=== PATIENT | female | born 1960 | race Caucasian/White ===

== ENCOUNTER 2020-02-04 12:25 | Outpatient (CLI) | payer BC, SELFPAY ==
--- NOTE | ~2020-02-04 | XR_ITS ---
XR chest 2V DATE: 02/04/2020 12:42 INDICATION: Dyspnea on exertion. Positive SB. TECHNIQUE: PA and lateral views are COMPARISON: 01/06/2019 CT chest 09/03/2018 2 view chest FINDINGS: Borderline heart size. No hilar or mediastinal enlargement. No pulmonary infiltrate or cons olidation, pleural effusion or pulmonary vascular congestion or pneumothorax. Chronic T8 fracture deformity. IMPRESSION: No active pulmonary disease or significant change since 09/03/2018 Reviewed, dictated and finalized at location A.
== END 2020-02-04 12:26 | disposition home or self-care (01) ==
LOC: ANHIMG 12:31
PROVIDERS: PCP Family Medicine Adolescent Medicine; Visit Provider Physician Assistant
DX: R06.00 Dyspnea, unspecified (principal); R76.8 Other specified abnormal immunological findings in serum
CPT/HCPCS: 71046

== ENCOUNTER 2020-03-29 09:49 | Outpatient (CLI) | payer BC, SELFPAY ==
--- NOTE | ~2020-03-29 | MR_ITS ---
EXAMINATION: MR shoulder RT wo con DATE: 03/29/2020 11:00 INDICATION: Right rotator cuff tear presenting with right shoulder pain and limited range of motion TECHNIQUE: Magnetic resonance imaging (MRI) of the right shoulder was performed without intravenous c ontrast. Sequences included axial PD-weighted FS FSE, coronal oblique PD-weighted FS FSE, coronal obl ique T2-weighted FS FSE, sagittal PD-weighted FS FSE, and sagittal T1-weighted SE. COMPARISON: None. FINDINGS: Coracoacromial arch: The acromion undersurface is curved in morphology (type II). The coracoacromial ligament is normal. M oderate acromioclavicular osteoarthritis. Rotator cuff: Complete full-thickness tear at the critical zone of the supraspinatus and infraspinatus tendons prox imally 1.5 cm medial to the footplate. There is medial retraction resulting in up to 1 cm separation of the tear margins. There is moderate to severe tendinopathy at the remaining distal portion of the tendon and extending up to 2.5 cm proximally from the medial tear margin. Moderate subscapularis tend inopathy with small longitudinal split tear beginning at the cephalad lesser tuberosity and extending approximately 1 cm medially from the footplate. There is edema in the supraspinatus and infraspinatu s muscle bellies but no significant fatty atrophy suggesting the tear is relatively recent. Biceps tendon, glenoid labrum and glenohumeral cartilage: Mild tendinopathy of the intra-articular portion of the long head biceps tendon without discrete tear . Amorphous increased signal in the superior glenoid labrum consistent with labral degeneration. Carlos ohumeral cartilage is normal. Fluid: Moderate-sized glenohumeral joint effusion which extends into the deep subscapular recess as well as through the full-thickness rotator cuff tear to communicate with fluid in the subacromial, subdeltoid and subcoracoid bursae. No loose osteochondral bodies. Small amount of fluid in the subacromial/subd eltoid bursa consistent with mild bursitis. Bones: Normal marrow signal with no edema, fracture or abnormal marrow replacing process. IMPRESSION: 1. Full-thickness tear extending along the critical zone of the entire supraspinatus and infraspinatu s tendons which appears relatively recent with no appreciable fatty muscular atrophy. 2. Moderate subscapularis tendinopathy with small intrasubstance longitudinal split tear. 3. Degeneration of the superior glenoid labrum. 4. Mild tendinopathy without discrete tear of the intra-articular long head biceps tendon. 5. Likely reactive moderate sized glenohumeral joint effusion. Reviewed, dictated and finalized at location A. IMPRESSION: 1. Full-thickness tear extending along the critical zone of the entire supraspi natus and infraspinatus tendons which appears relatively recent with no appreci able fatty muscular atrophy. 2. Moderate subscapularis tendinopathy with small intrasubstance longitudinal s plit tear. 3. Degeneration of the superior glenoid labrum. 4. Mild tendinopathy without discrete tear of the intra-articular long head bic eps tendon. 5. Likely reactive moderate sized glenohumeral joint effusion.
== END 2020-03-29 09:50 | disposition home or self-care (01) ==
PROVIDERS: PCP Family Medicine Adolescent Medicine; Visit Provider Orthopaedic Surgery
DX: M75.101 Unspecified rotator cuff tear or rupture of right shoulder, not specified as traumatic (principal)
CPT/HCPCS: 73221

== ENCOUNTER 2020-04-24 08:23 | Outpatient (CLI) | payer BC, SELFPAY ==
--- NOTE | 2020-04-24 08:25 | ECG_ITS ---
Measurements Intervals [place] Rate: 66 P: 22 DE: 211 QRS: 22 QRSD: 101 T: -6 QT: 370 QTc: 388 Interpretive Statements SINUS RHYTHM WITH FIRST DEGREE AV BLOCK BORDERLINE ST-T WAVE ABNORMALITY- ANT/INF LEADS BASELINE ARTIFACT- I, II, III, AVR, AVL, AVF, V1-V6 ABNORMAL ECG Electronically Signed On 04-24-2020 8:52:40 CDT by Ajit Arredondo D.O.
[2020-04-24 08:55] LABS: Anion Gap 8 mmol/L (8-16); Blood Urea Nitrogen 16 mg/dL (7-17); Calcium 9.2 mg/dL (8.4-10.2); Carbon Dioxide 28 mmol/L (22-30); Chloride 96 mmol/L (98-107); Estimated Glomerular Filt Rate > 60; Glucose 88 mg/dL (65-105); Potassium 3.7 mmol/L (3.4-5.0); Sodium 132 mmol/L (137-145)
== END 2020-04-24 08:24 | disposition home or self-care (01) ==
LOC: ANHSURGERY 08:25
PROVIDERS: Anesthesiology; PCP Family Medicine Adolescent Medicine; Visit Provider Orthopaedic Surgery
DX: I10 Essential (primary) hypertension (principal); Z01.818 Encounter for other preprocedural examination; I44.0 Atrioventricular block, first degree
CPT/HCPCS: 36415; 80048; 93005

== ENCOUNTER 2020-04-26 01:17 | Outpatient (CLI) | payer BC, SELFPAY ==
[2020-04-26 18:18] LABS: SARS-CoV-2 RNA PCR Negative
== END 2020-04-26 01:18 | disposition home or self-care (01) ==
LOC: ANHCOVIDDT 01:17
PROVIDERS: PCP Family Medicine Adolescent Medicine; Visit Provider Orthopaedic Surgery
DX: Z01.812 Encounter for preprocedural laboratory examination (principal); Z20.828 Contact with and (suspected) exposure to other viral communicable diseases
CPT/HCPCS: 87635; C9803; U0003

== ENCOUNTER 2020-04-28 00:29 | Day surgery (SDC) | payer BC, SELFPAY ==
[2020-04-14 15:25] VITALS: BMI 28.4
--- NOTE | 2020-04-27 10:01 | WPDANESEPPF ---
Anes - Initial Pre Proc Eval Procedure: Operation Date: 04/28/20 09:30 Proposed Procedures p Right Shoulder Arthroscopy, Rotator Cuff Repair, Proceed As Indicated - Stewart Hernandez MD Date/Time: 04/27/20 10:01 Surgeon: Stewart Hernandez MD Pre Op Diagnosis: Right Shoulder Rotator Cuff Tear Patient Data Age: 59 Gender: F Height: 1.57 m Weight: 70.45 kg Allergies Allergy/AdvReac Type Severity Reaction Status Date / Time codeine Allergy Intermediate Nausea Verified 04/14/20 14:52 morphine Allergy Intermediate Nausea Verified 04/14/20 14:52 Home Medications Medication Instructions Recorded Confirmed Type aspirin 81 mg tablet,delayed 81 mg PO DAILY 03/22/20 04/28/20 History release biotin 10,000 mcg disintegrating 10,000 mcg PO DAILY 03/22/20 04/28/20 History tablet carisoprodol 350 mg tablet 350 mg PO PRN 03/22/20 04/28/20 History coenzyme Q10 400 mg capsule 400 mg PO DAILY 03/22/20 04/28/20 History hydrochlorothiazide 25 mg tablet 25 mg PO DAILY 03/22/20 04/28/20 History hydroxyzine HCl 25 mg tablet 25 mg PO TID PRN 03/22/20 04/28/20 History lorazepam 1 mg tablet 1 mg PO DAILY PRN 03/22/20 04/28/20 History losartan 100 mg tablet 100 mg PO DAILY 03/22/20 04/28/20 History ondansetron HCl 8 mg tablet 8 mg PO PC 03/22/20 04/14/20 History pantoprazole 40 mg tablet,delayed 40 mg PO QAM 03/22/20 04/14/20 History release sumatriptan succinate 100 mg tablet See Rx Instructions PO .COMPLEX 03/22/20 04/14/20 History riboflavin (vitamin B2) 100 mg PO BID 04/14/20 04/14/20 History Patient hx anesthesia problems: none Family hx anesthesia problems: none PMFSH Past Medical History Medical History (Updated 04/27/20 @ 10:01 by Sundar Rosenthal DO) Anxiety Fracture of sacrum (~11/2002) History of fracture of left ankle (~09/2000) History of meningitis Hypertension Surgical History Surgical History History of bilateral carpal tunnel release (~2012) History of knee surgery (~11/1991) Crushed Rt Knee & Fx Femur History of right knee surgery (~05/1992) Family History Family History Unknown Melanoma Parkinson disease Dementia Social History Social History Smoking status: Never smoker Alcohol intake: current Drinks per week: 5 Substance use: never Living arrangements: with family Spiritual care concerns: No Anes - Eval Final PreProcedure Day of Procedure 04/27/20 10:01 Patient weight: overweight Heart: regular rate and rhythm Lungs: clear to auscultation and normal air movement Airway: Mallampati scale class II Neurological: alert and oriented Last oral intake: >/= 8 hours ASA classification: II Emergent: no Anesthetic plan: proceed Anesthesia type and monitoring: general ETT and standard monitoring Informed Consent: The patient's anesthetic plan and its attendant risks and benefits were discussed with the patient/family/POA. Questions were solicited and answers provided to the satisfaction of the patient/family/POA.
[2020-04-28] VITALS (10 sets, daily range): BP systolic 114–137; BP diastolic 67–97; PULSE 65–76; RESP 14–20; TEMP 36–36.6; O2SAT 94–100
--- NOTE | 2020-04-28 07:26 | WPDHPUPDATE1 ---
History and Physical Update Update Date/Time: 04/28/20 07:26 History and Physical has been reviewed, including an updated exam of the patient. There are NO changes in the patient's condition. Risks, benefits, and alternatives have been discussed and questions answered. Patient agrees to proceed with procedure.
[2020-04-28] MEDS: LACTATED RINGERS 1,000 ML 30 ML IV CONT ×2 (08:21→14:04)
--- NOTE | 2020-04-28 08:28 | WPDANESPNB ---
Anes - Peripheral Nerve Block Date/Time: 04/28/20 08:28 I have discussed with the patient/family/POA the placement of a peripheral nerve block for post-operative pain management, including associated risks, benefits, complications, and side effects. Alternative methods of post-operative analgesia were detailed. Questions were solicited and answers provided to the satisfaction of the patient/family/POA. Time-Out: A pre-procedural Time-Out was completed immediately before starting the procedure and confirmed: Patient Identification, Site, Procedure, Patient Position and the Availability of Requisite Equipment. Clinical Indications: Acute post-operative pain management requested by the operative surgeon. Nerve Block Insertion Note Anes-nerve block: interscalene right Patient position: supine Skin prep: chlorhexidine Needle: 22 gauge, stimulating, insulated echogenic needle. Needle length: 50 mm Technique: ultrasound Injectate: bupivacaine 0.5% with epi 5 mcg/ml (20cc) Observations: tolerated well Complications: none Procedure start time:: 925 Procedure end time:: 928
[2020-04-28] MEDS: ACETAMINOPHEN 500 MG TABLET 1000 MG PO (08:30)
[2020-04-28] MEDS: KETOROLAC 15 MG/ML VIAL (*BKC) IV PUSH (08:39)
[2020-04-28] MEDS: SCOPOLAMINE 1.5 MG PATCH TRANSDERM (09:34)
[2020-04-28] MEDS: ceFAZolin 2 GM/D5W 50 ML 2 GM/50 ML BAG IVPB (09:41)
--- NOTE | 2020-04-28 17:52 | PM.PROC ---
Procedure Note - Detailed Date of procedure: 04/28/20 Pre-op diagnosis: Right Shoulder Rotator Cuff Tear Post-op diagnosis: other ( 1. Massive rotator cuff tear including the subscapularis. 2. Biceps tendinosis. 3. Degenerative slap tear 4. Subacromial impingement.) Procedure performed: 1. Arthrosocopic rotator cuff repair. 2. Arthroscopic subacromial decompression. 3. Arthroscopic biceps tenodesis. Description of procedure: Massive tear treated with multiple bone tunnels and a suture anchor. Margin convergence also required. Biceps tenodesis incorporated in the anterior tunnel repair. Significant delamination and retraction managed with capsule releases and rotator interval slide. Mild degenerative changes primarily at the anterior glenoid. Anesthesia: GETA Surgeon: Stewart Hernandez MD Estimated blood loss (mL): 20 Pathology: none sent Complications: None Condition: stable Disposition: PACU Findings: Operative detail: Preoperative antibiotics were given. An interscalene block was administered in the preoperative area. The patient was bought brought to the operating room. A general anesthetic was administered. The patient was carefully positioned in the beach chair position. The head and neck were carefully positioned. The non operative extremity was also carefully positioned. The shoulder was prepped and draped in the usual sterile fashion. Examination was performed. Standard posterior and anterior arthroscopic portals were established. Later, 3 supplemental portals were used. Inflow achieved with the arthroscopic pump using saline and epinephrine. The glenohumeral joint was carefully inspected. The articular cartilage showed some damage on the glenoid anteriorly. There was also a significant degenerative superior labral tear. Mild capsulitis. Tearing of the subscapularis was observed. Also a massive supraspinatus tear. There were minimal degenerative changes on the humeral head. Chondroplasty was performed on the glenoid and humeral head. The biceps was released for later tenodesis. Attention was turned to the subacromial space. A subacromial decompression was performed with acromioplasty. Some remaining supraspinatus tendon was left on the greater tuberosity. There was significant splitting and delamination posteriorly. The tear was quite massive and poorly mobile. Careful releases were performed on the under surface of the rotator cuff. A rotator interval slide was required. The subscapularis was repaired with a bone tunnel and 3 sutures. Biceps tenodesis was incorporated. Remaining cuff was repaired with 2 bone tunnels. The ArthroTunneler technique was utilized. Three sutures were passed through each tunnel. All sutures were then passed through the cuff tissue. The sutures were tied arthroscopically. The posterior tunnel with 3 sutures into the teres minor and infraspinatus. The other tunnel was more anterior for the supraspinatus. A supplemental metallic anchor was placed between these tunnels and the double loaded sutures were tied in a horizontal mattress fashion into the L-shaped component of the cuff tear between the supra and infraspinatus. This accomplished margin convergence as well. A separate margin convergence suture was placed previously at the apex of the L-shaped portion. The tear was completely reduced. There was no undue tension. The arthroscopic instruments were removed. The wounds were closed with 3-0 Monocryl subcuticular suture and steri strips. There were no complications. A sling was applied and the patient brought to the recovery room.
== END 2020-04-28 16:30 | disposition home or self-care (01) ==
PROVIDERS: PCP Family Medicine Adolescent Medicine; Visit Provider Orthopaedic Surgery
PROC: (CPT 29805; principal; 2020-04-28 09:30)
DX: S46.011A Strain of muscle(s) and tendon(s) of the rotator cuff of right shoulder, initial encounter (principal); W18.39XA Other fall on same level, initial encounter; G89.18 Other acute postprocedural pain; I10 Essential (primary) hypertension; F41.9 Anxiety disorder, unspecified; Z79.82 Long term (current) use of aspirin
CPT/HCPCS: 29827; 29828; 29826; 64415; A4565; A9270; C1713; J0330; J0690; J1100; J1885; J2250; J2405; J2704; J3010; J7120

== ENCOUNTER 2020-09-11 10:51 | Outpatient (CLI) | payer BC, SELFPAY ==
[2020-09-11 11:49] LABS: Alanine Aminotransferase 24 U/L (4-35); Albumin Level 3.9 g/dL (3.5-5.1); Alkaline Phosphatase 61 U/L (38-126); Anion Gap 5 mmol/L (8-16); Aspartate Amino Transferase 26 U/L (14-36); Bilirubin,Total 0.5 mg/dL (0.2-1.3); Blood Urea Nitrogen 15 mg/dL (7-17); Calcium 8.9 mg/dL (8.4-10.2); Carbon Dioxide 28 mmol/L (22-30); Chloride 99 mmol/L (98-107); Cholesterol 217 mg/dL (0-200); Estimated Glomerular Filt Rate > 60; Glucose 85 mg/dL (65-105); HDL Direct 83 mg/dL; Potassium 3.9 mmol/L (3.4-5.0); Sodium 132 mmol/L (137-145); Triglycerides 51 mg/dL (<150)
[2020-09-11 12:00] LABS: LDL Cholesterol Direct 102 mg/dL
== END 2020-09-11 10:52 | disposition home or self-care (01) ==
LOC: ANHLAB 10:54
PROVIDERS: PCP Family Medicine Adolescent Medicine; Visit Provider Physician Assistant
DX: E78.00 Pure hypercholesterolemia, unspecified (principal); I10 Essential (primary) hypertension
CPT/HCPCS: 36415; 80053; 80061

== ENCOUNTER → 2020-09-18 01:03 | Outpatient (CLI) | payer BC, SELFPAY ==
[2020-09-18 20:23] LABS: SARS-CoV-2 RNA PCR Negative
== END ==
PROVIDERS: PCP Family Medicine Adolescent Medicine; Visit Provider Internal Medicine Gastroenterology
DX: Z01.812 Encounter for preprocedural laboratory examination (principal); Z20.822 Contact with and (suspected) exposure to COVID-19
CPT/HCPCS: C9803; U0003; U0005

== ENCOUNTER 2020-09-21 01:16 | Day surgery (SDC) | payer BC, SELFPAY ==
[2020-09-08 09:19] VITALS: BMI 30.2
[2020-09-21 10:17] VITALS: BP 132/72; PULSE 70; RESP 16; TEMP 36.5; O2SAT 100; BMI 29.9
[2020-09-21] MEDS: LACTATED RINGERS 1,000 ML 150 ML IV CONT (10:26)
--- NOTE | 2020-09-21 10:54 | WPDANESEPPF ---
Anes - Initial Pre Proc Eval Procedure: Operation Date: 09/21/20 11:30 Proposed Procedures p Screening Colonoscopy - Дмитрий Rees DO Date/Time: 09/21/20 10:54 Surgeon: Дмитрий Rees DO Pre Op Diagnosis: Neoplasm Screening Patient Data Age: 59 Gender: F Height: 5 ft 2 in Weight: 74.4 kg Last Vital Signs Temp 97.7 F 09/21/20 10:17 Pulse 70 09/21/20 10:17 Resp 16 09/21/20 10:17 BP 132/72 09/21/20 10:17 Pulse Ox 100 09/21/20 10:17 Allergies Allergy/AdvReac Type Severity Reaction Status Date / Time codeine Allergy Intermediate Nausea Verified 09/21/20 10:14 morphine Allergy Intermediate Nausea Verified 09/21/20 10:14 Home Medications Medication Instructions Recorded Confirmed Type aspirin 81 mg tablet,delayed 81 mg PO DAILY 03/22/20 09/08/20 History release biotin 10,000 mcg disintegrating 10,000 mcg PO DAILY 03/22/20 09/08/20 History tablet carisoprodol 350 mg tablet 350 mg PO PRN 03/22/20 09/08/20 History hydrochlorothiazide 25 mg tablet 25 mg PO DAILY 03/22/20 09/08/20 History hydroxyzine HCl 25 mg tablet 25 mg PO TID PRN 03/22/20 09/08/20 History lorazepam 1 mg tablet 1 mg PO DAILY PRN 03/22/20 09/08/20 History losartan 100 mg tablet 100 mg PO DAILY 03/22/20 09/08/20 History ondansetron HCl 8 mg tablet 8 mg PO PC 03/22/20 09/08/20 History pantoprazole 40 mg tablet,delayed 40 mg PO QAM 03/22/20 09/08/20 History release sumatriptan succinate 100 mg tablet See Rx Instructions PO .COMPLEX 03/22/20 09/08/20 History Patient hx anesthesia problems: none Family hx anesthesia problems: none [facility] Past Medical History Medical History (Updated 08/28/20 @ 09:19 by Catie House, RT(R)) Anxiety Fracture of sacrum (~11/2002) History of fracture of left ankle (~09/2000) History of meningitis Hypertension Surgical History Surgical History (Updated 08/28/20 @ 09:01 by Stewart Hernandez MD) History of bilateral carpal tunnel release (~2012) History of knee surgery (~11/1991) Crushed Rt Knee & Fx Femur History of repair of right rotator cuff (~04/28/20) History of right knee surgery (~05/1992) Family History Family History Unknown Melanoma Parkinson disease Dementia Social History Social History Smoking status: Never smoker Alcohol intake: current Drinks per week: 5 Substance use: never Substance use type: does not use Living arrangements: with family Spiritual care concerns: No Anes - Eval Final PreProcedure Day of Procedure 09/21/20 10:54 Patient weight: overweight Heart: regular rate and rhythm Lungs: clear to auscultation Airway: Mallampati scale class II Neurological: alert and oriented Last oral intake: >/= 8 hours ASA classification: II Emergent: no Anesthetic plan: proceed Anesthesia type and monitoring: general GIVS and standard monitoring Informed Consent: The patient's anesthetic plan and its attendant risks and benefits were discussed with the patient/family/POA. Questions were solicited and answers provided to the satisfaction of the patient/family/POA.
--- NOTE | 2020-09-21 11:17 | WPDGICN ---
GI Consult Note Consult date/time: 09/21/20 11:17 HPI: Reason for visit is colonoscopy. This very pleasant lady seen in consultation request of primary physician. Impression: Screening colonoscopy. GERD. HTN. Anxiety. Recommendation: Colonoscopy. History: This very pleasant lady is here for colonoscopy. Her GI review systems negative. He has a history reflux disease. Medication seems to control her symptoms. Physical examination: General: very pleasant patient in no acute distress. HEENT: Head was normocephalic sclerae is clear mouth without masses neck was supple. Heart: Rate rhythm regular without S3 or S4. Lungs: CTA. Abdomen: Soft with no guarding or rigidity. Bowel sounds were active. Neurologic: Cranial nerves 2 through 12 intact. No focal defects. No clonus. Musculoskeletal system: Revealed no joint tenderness or swelling no muscle atrophy. Extremities: Reveal no significant edema. Skin: Warm and dry with normal turgor. Mental status: intact. Patient is alert and oriented. Review of Systems Review of Systems: All systems reviewed & are unremarkable except as noted in HPI and below PMFSH Past Medical History Medical History (Updated 09/21/20 @ 11:16 by Дмитрий Rees DO) Anxiety History of fracture of left ankle (~09/2000) History of meningitis Hypertension Surgical History Surgical History (Updated 08/28/20 @ 09:01 by Stewart Hernandez MD) History of bilateral carpal tunnel release (~2012) History of knee surgery (~11/1991) Crushed Rt Knee & Fx Femur History of repair of right rotator cuff (~04/28/20) History of right knee surgery (~05/1992) Family History Family History Unknown Melanoma Parkinson disease Dementia Social History Social History Smoking status: Never smoker Alcohol intake: current Drinks per week: 5 Substance use: never Substance use type: does not use Living arrangements: with family Spiritual care concerns: No Meds Home Medications and Allergies Home Medications Medication Instructions Recorded Confirmed Type aspirin 81 mg tablet,delayed 81 mg PO DAILY 03/22/20 09/08/20 History release biotin 10,000 mcg disintegrating 10,000 mcg PO DAILY 03/22/20 09/08/20 History tablet carisoprodol 350 mg tablet 350 mg PO PRN 03/22/20 09/08/20 History hydrochlorothiazide 25 mg tablet 25 mg PO DAILY 03/22/20 09/08/20 History hydroxyzine HCl 25 mg tablet 25 mg PO TID PRN 03/22/20 09/08/20 History lorazepam 1 mg tablet 1 mg PO DAILY PRN 03/22/20 09/08/20 History losartan 100 mg tablet 100 mg PO DAILY 03/22/20 09/08/20 History ondansetron HCl 8 mg tablet 8 mg PO PC 03/22/20 09/08/20 History pantoprazole 40 mg tablet,delayed 40 mg PO QAM 03/22/20 09/08/20 History release sumatriptan succinate 100 mg tablet See Rx Instructions PO .COMPLEX 03/22/20 09/08/20 History Allergies Allergy/AdvReac Type Severity Reaction Status Date / Time codeine Allergy Intermediate Nausea Verified 09/21/20 10:14 morphine Allergy Intermediate Nausea Verified 09/21/20 10:14 Vital Signs Vital Signs - 24 hr 09/21/20 10:17 Temperature 36.5 C Pulse Rate 70 Respiratory Rate 16 Blood Pressure 132/72 Pulse Oximetry 100
[2020-09-21 11:37] VITALS: BP 137/78; PULSE 61; RESP 12; O2SAT 98
[2020-09-21 11:47] VITALS: BP 167/86; PULSE 60; RESP 14; O2SAT 99
== END 2020-09-21 12:12 | disposition home or self-care (01) ==
PROVIDERS: PCP Family Medicine Adolescent Medicine; Visit Provider Internal Medicine Gastroenterology
PROC: 0DJD8ZZ Inspection of Lower Intestinal Tract, Via Natural or Artificial Opening Endoscopic (ICD-10-PCS; CPT 45378; principal; 2020-09-21 11:30)
DX: Z12.11 Encounter for screening for malignant neoplasm of colon (principal); I10 Essential (primary) hypertension; K21.9 Gastro-esophageal reflux disease without esophagitis; F41.9 Anxiety disorder, unspecified; Z79.82 Long term (current) use of aspirin
CPT/HCPCS: 45378; J2704; J7120

== ENCOUNTER 2020-12-02 16:21 | Emergency (ER) | payer BC, SELFPAY ==
[2020-12-02 16:28] VITALS: BP 99/83; PULSE 81; RESP 18; TEMP 36.5; O2SAT 100
[2020-12-02 16:32] VITALS: BP 99/83; PULSE 81; RESP 18; TEMP 36.5; O2SAT 100
--- NOTE | 2020-12-02 16:44 | ED.SKABFB ---
HPI - Skin/Abscess/Foreign Bdy General Chief complaint: Skin/Abscess/Foreign Body Stated complaint: Rash on Lips Source: patient and RN notes reviewed Limitations: no limitations History of Present Illness HPI narrative: The patient,active on several meds, presents with skin eruption from being outside doing yard work. Patient states she has a couple day history of very fine, pimply eruption along her lip line including the upper lip. She has been on prednisone in the past week for bronchitic cough; she has a prior history of shingles for which she has old prescription of acyclovir. She is concerned about zoster having had shingles on her right forehead and left breast, yet the eruption seems to occur on both sides of her lip[ unlike previously unilateral]. Discussed possible causes [cheilitis, infection(viral, etc.), etc] and will treat broadly with standard dose Valtrex. She is on several medicines for HTN, GERD, migraines; not been Covid vaccinated Related Data Home Medications Medication Instructions Recorded Confirmed aspirin 81 mg tablet,delayed 81 mg PO DAILY 03/22/20 12/02/20 release carisoprodol 350 mg tablet 350 mg PO PRN 03/22/20 12/02/20 hydroxyzine HCl 25 mg tablet 25 mg PO TID PRN 03/22/20 12/02/20 losartan 100 mg tablet 100 mg PO DAILY 03/22/20 12/02/20 pantoprazole 40 mg tablet,delayed 40 mg PO QAM 03/22/20 12/02/20 release sumatriptan succinate 100 mg tablet See Rx Instructions PO .COMPLEX 03/22/20 12/02/20 hydrochlorothiazide 25 mg tablet 50 mg PO DAILY tablet 10/30/20 12/02/20 diclofenac sodium 75 mg PO BID 12/02/20 12/02/20 prednisone 10 mg DAILY 12/02/20 12/02/20 trazodone 50 mg HS 12/02/20 12/02/20 Allergies Allergy/AdvReac Type Severity Reaction Status Date / Time codeine Allergy Intermediate Nausea Verified 09/21/20 10:14 morphine Allergy Intermediate Nausea Verified 09/21/20 10:14 Review of Systems Review of Systems: Narrative: General/Constitutional: No weight loss,fever Eyes: N0: Redness,discharge Ears/Nose/Throat: No: Epistaxis,ear discharge Respiratory: Denies: Hemoptysis Gastrointestinal: No Vomiting, Bleeding-rectal Skin: No Lumps, REPORTS eruption Neurologic: No Focal Weakness,Sz Hematologic: Denies: Petechiae/Purpura Psychiatric: No: Suicida ideationl All Other Systems: Reviewed and Negative PMF Past Medical History Medical History (Updated 12/03/20 @ 00:00 by Georgina Dajessu) Anxiety History of fracture of left ankle (~09/2000) History of meningitis Hypertension Surgical History Surgical History (Updated 08/28/20 @ 09:01 by Stewart Hernandez MD) History of bilateral carpal tunnel release (~2012) History of knee surgery (~11/1991) Crushed Rt Knee & Fx Femur History of repair of right rotator cuff (~04/28/20) History of right knee surgery (~05/1992) Family History Family History Unknown Melanoma Parkinson disease Dementia Social History Social History Smoking status: Never smoker Alcohol intake: current Drinks per week: 5 Substance use: never Substance use type: does not use Gender identity (if verbalized by the patient): Female Spiritual care concerns: No Comments At time of signature, agree with nursing past medical, surgical, social and family history. There is no relevant family history pertinent to the presenting complaint Exam Narrative: Exam Narrative: General Appearance: Well appearing, Well nourished, No distress EYE: PERRLA , EOMI Skin: Warm, Dry; mild vesicular eruption bilateral upper lips excluding angles Ears: External ear normal, Auditory canal normal Nose: Normal nose, Nares clear Mouth/Throat: Normal appearing, Normal lips Neck: Supple, No adenopathy Respiratory: Airway patent, No respiratory distress Neurological: A&O x3, CN II-X intact Psychiatric: Normal mood, Normal affect Course
== END 2020-12-02 16:56 | disposition home or self-care (01) ==
PROVIDERS: Emergency Provider Emergency Medicine; PCP Family Medicine Adolescent Medicine
DX: R21 Rash and other nonspecific skin eruption (principal); I10 Essential (primary) hypertension; F41.9 Anxiety disorder, unspecified; Z86.61 Personal history of infections of the central nervous system; Z79.82 Long term (current) use of aspirin; K21.9 Gastro-esophageal reflux disease without esophagitis
CPT/HCPCS: 99211; G0463

== ENCOUNTER → 2020-12-27 10:28 | Outpatient (CLI) | payer BC, SELFPAY ==
--- NOTE | ~2020-12-27 | XR_ITS ---
EXAMINATION: XR chest 2V DATE: 12/27/2020 11:19 INDICATION: Cough TECHNIQUE: PA and lateral views of the chest are obtained. COMPARISON: 02/04/2020 FINDINGS: The lungs are free of acute opacities. There is no pleural effusion or pneumothorax. The ca rdiomediastinal silhouette is normal. There is moderate thoracic spondylosis. A chronic T8 compressio n fracture is noted. IMPRESSION: 1. No acute cardiopulmonary abnormality. Reviewed, dictated and finalized at location B.
== END ==
PROVIDERS: PCP Family Medicine Adolescent Medicine; Visit Provider Family Medicine Adolescent Medicine
DX: R05 Cough (principal)
CPT/HCPCS: 71046

== ENCOUNTER 2021-01-08 10:38 | Emergency (ER) | payer BC, SELFPAY ==
[2021-01-08] VITALS (8 sets, daily range): BP systolic 110–126; BP diastolic 55–81; PULSE 72; RESP 15–18; TEMP 36.5–37; O2SAT 97–100
--- NOTE | ~2021-01-08 | XR_ITS ---
EXAMINATION: XR chest 2V DATE: 01/08/2021 11:56 INDICATION: Shortness of breath. TECHNIQUE: Frontal and lateral views of the chest were obtained. COMPARISON: Chest 2 views 02/04/2020, chest CT 01/06/2019 FINDINGS: There is mild atelectasis at left lung base. A calcified left lung nodule is consistent wit h old granulomatous disease. No pleural effusion or pneumothorax. The heart size is normal. There is a suture anchor in right humeral head. IMPRESSION: 1. Mild atelectasis at left lung base. Reviewed, dictated and finalized at location A.
--- NOTE | 2021-01-08 11:14 | ECG_ITS ---
Measurements Intervals [place] Rate: 64 P: 47 [place]: 233 QRS: 18 QRSD: 101 T: -9 QT: 391 QTc: 405 Interpretive Statements SINUS RHYTHM WITH FIRST DEGREE AV BLOCK EARLY PRECORDIAL R/S TRANSITION BORDERLINE ST-T WAVE ABNORMALITY- ANT/INF LEADS BASELINE ARTIFACT- I, III ABNORMAL ECG Electronically Signed On 01-08-2021 13:31:17 CDT by Ajit Arredondo D.O.
--- NOTE | 2021-01-08 11:26 | ED.GENADULT ---
HPI - General Adult General Chief complaint: Upper Respiratory Infection Stated complaint: URI PERSISTENT COUGH [id number] Time Seen by Provider: 01/08/21 11:06 Source: patient History of Present Illness HPI narrative: Patient is a 60 y/o female complaining of dry cough for last 3 months. There is no known alleviating or exacerbating factor. She was given multiple course of antibiotic which did not help. She also tried allergy medication which did not help either. She has no chest pain or fever. Related Data Home Medications Medication Instructions Recorded Confirmed aspirin 81 mg tablet,delayed 81 mg PO DAILY 03/22/20 12/02/20 release carisoprodol 350 mg tablet 350 mg PO PRN 03/22/20 12/02/20 hydroxyzine HCl 25 mg tablet 25 mg PO TID PRN 03/22/20 12/02/20 losartan 100 mg tablet 100 mg PO DAILY 03/22/20 12/02/20 pantoprazole 40 mg tablet,delayed 40 mg PO QAM 03/22/20 12/02/20 release sumatriptan succinate 100 mg tablet See Rx Instructions PO .COMPLEX 03/22/20 12/02/20 hydrochlorothiazide 25 mg tablet 50 mg PO DAILY tablet 10/30/20 12/02/20 diclofenac sodium 75 mg PO BID 12/02/20 12/02/20 prednisone 10 mg DAILY 12/02/20 12/02/20 trazodone 50 mg HS 12/02/20 12/02/20 Allergies Allergy/AdvReac Type Severity Reaction Status Date / Time codeine AdvReac Intermediate Nausea Verified 01/08/21 13:28 morphine AdvReac Intermediate Nausea Verified 01/08/21 13:28 Review of Systems Review of Systems: All systems reviewed & are unremarkable except as noted in HPI and below Constitutional: Constitutional: Denies chills, Denies fever(s), Denies headache(s) and Denies weakness Eyes: Eyes: Denies blurry vision ENT: Denies headache(s) and Denies neck pain Cardiovascular: Cardiovascular: Denies chest pain and Denies dyspnea Respiratory: Respiratory: Reports cough and Denies dyspnea Gastrointestinal: Gastrointestinal: Denies abdominal pain, Denies diarrhea, Denies nausea and Denies vomiting Genitourinary: Genitourinary: Denies hematuria and Denies dysuria Musculoskeletal: Musculoskeletal: Denies back pain and Denies neck pain Neurologic: Denies headache(s) and Denies weakness PMFSH Past Medical History Medical History Anxiety History of fracture of left ankle (~09/2000) History of meningitis Hypertension Surgical History Surgical History History of bilateral carpal tunnel release (~2012) History of knee surgery (~11/1991) Crushed Rt Knee & Fx Femur History of repair of right rotator cuff (~04/28/20) History of right knee surgery (~05/1992) Family History Family History Unknown Melanoma Parkinson disease Dementia Social History Social History Smoking status: Never smoker Alcohol intake: current Drinks per week: 5 Substance use: never Substance use type: does not use Gender identity (if verbalized by the patient): Female Spiritual care concerns: No Exam Const: General: no acute distress and well developed Orientation/consciousness: oriented to person, oriented to place, oriented to time and patient oriented x3 HENMT: Head: normocephalic Ears: external ears normal General nose exam: Normal external nose present Eyes: General: appearance normal, both eyes and all related structures Conjunctivae: conjunctivae normal Neck: Neck: normal visual inspection and full ROM Chest: Chest palpation & inspection: normal inspection of the chest and no tenderness Resp: Effort & Inspection: normal respiratory effort Auscultation: clear to auscultation bilaterally Cardio: Rate: regular rate Rhythm: regular rhythm GI: GI Palp: No abdominal tenderness and Yes Soft to palpation Skin: General skin exam: normal color and turgor normal Neuro: General: oriented to person, oriented to place, orie
[2021-01-08 11:33] LABS: Basophils Percent Auto 0.7 % (0.2-1.2); Eosinophils Absolute Auto 0.1 K/mm3 (0-0.3); Eosinophils Percent Auto 2.4 % (0-4.4); Hematocrit 30.1 % (37.0-47.0); Immature Granulocyte Absolute 0.01 K/mm3 (0.00-0.031); Immature Granulocyte Percent A 0.2 % (0-0.5); Lymphocytes Absolute Auto 0.58 K/mm3 (0.9-3.2); Lymphocytes Percent Auto 14.1 % (18.3-44.2); Mean Corpuscular HGB Conc 33.2 g/dl (32-36); Mean Corpuscular Hemoglobin 25.6 pg (26-34); Mean Corpuscular Volume 77.2 fl (80-100); Mean Platelet Volume 8.8 fl (7.4-10.4); Monocytes Absolute Auto 0.9 K/mm3 (0.1-0.6); Monocytes Percent Auto 21.4 % (2.6-8.5); Neutrophils Absolute Auto 2.5 K/mm3 (1.3-6.7); Neutrophils Percent Auto 61.2 % (45.5-73.1); Platelet Count Result 247 k/mm3 (150-375); White Blood Count 4.1 K/mm3 (4.5-10.0)
[2021-01-08 11:43] LABS: Alanine Aminotransferase 16 U/L (4-35); Albumin Level 3.9 g/dL (3.5-5.1); Alkaline Phosphatase 68 U/L (38-126); Anion Gap 7 mmol/L (8-16); Aspartate Amino Transferase 25 U/L (14-36); Bilirubin,Total 0.4 mg/dL (0.2-1.3); Blood Urea Nitrogen 14 mg/dL (7-17); Calcium 9.4 mg/dL (8.4-10.2); Carbon Dioxide 26 mmol/L (22-30); Chloride 89 mmol/L (98-107); Estimated CRCL calculation 41 ml/min; Estimated Glomerular Filt Rate 46; Glucose 104 mg/dL (65-105); Sodium 122 mmol/L (137-145)
[2021-01-08 11:51] LABS: D Dimer 0.28 ug/mL (<0.48)
[2021-01-08 11:56] LABS: NT Pro B Type Natriuretic Pept 71 pg/mL (5-100)
[2021-01-08] MEDS: SODIUM CHLORIDE 0.9% IV 1,000 ML 999 ML IV CONT (13:49)
== END 2021-01-08 15:45 | disposition home or self-care (01) ==
PROVIDERS: Emergency Provider Emergency Medicine; PCP Family Medicine Adolescent Medicine
DX: E87.1 Hypo-osmolality and hyponatremia (principal); R05 Cough; Z79.82 Long term (current) use of aspirin
CPT/HCPCS: 36415; 71046; 80053; 83880; 85025; 85380; 93005; 96360; 99283; J7030

== ENCOUNTER 2021-01-30 10:08 | Outpatient (CLI) | payer BC, SELFPAY ==
[2021-01-30 12:47] LABS: SARS-CoV-2 IgG Non-Reactive (NonReactive)
== END 2021-01-30 10:09 | disposition home or self-care (01) ==
LOC: ANHLAB 10:10
PROVIDERS: PCP Family Medicine Adolescent Medicine; Visit Provider Internal Medicine Critical Care Medicine
DX: R05 Cough (principal)
CPT/HCPCS: 36415; 86769

== ENCOUNTER → 2021-02-06 14:44 | Outpatient (CLI) | payer BC, SELFPAY ==
--- NOTE | ~2021-02-06 | CT_ITS ---
EXAMINATION:CT diagnostic chest wo con DATE: 02/06/2021 15:03 INDICATION: Cough for 4 months. Shortness of breath. TECHNIQUE: Computed tomography (CT) of the chest was performed without intravenous contrast. Automate d exposure control and iterative reconstruction technique were employed. The dose-length product (DLP ) was 169.33 mGy-cm. COMPARISON: Chest CT 01/06/2019 FINDINGS: There is mild scarring at the lung apices. There is mild atelectasis bilaterally. A calcifi ed left lung nodule and calcified left hilar lymph nodes are consistent with old granulomatous diseas e. No pleural effusion. The heart size is normal. No pericardial effusion. There is a suture anchor i n right humeral head. There is mild thoracic spondylosis. There is a chronic burst fracture of T8. IMPRESSION: 1. Stable mild scarring at the lung apices. Reviewed, dictated and finalized at location A.
== END ==
PROVIDERS: PCP Family Medicine Adolescent Medicine; Visit Provider Family Medicine Adolescent Medicine
DX: R05 Cough (principal); R91.8 Other nonspecific abnormal finding of lung field
CPT/HCPCS: 71250

== ENCOUNTER 2021-04-24 09:36 | Outpatient (CLI) | payer BC, SELFPAY ==
--- NOTE | ~2021-04-24 | MM_ITS ---
EXAMINATION: MM screening ashli BI w vivian HISTORY: Screening mammogram TECHNIQUE: Craniocaudal and mediolateral oblique 3-D tomosynthesis images were obtained and synthetic 2-D images were generated. CAD analysis was submitted and interpreted. COMPARISON: 05/25/2019, 03/18/2018 bilateral digital screening mammogram examinations 01/25/2016 and 07/11/2015 Limited left breast ultrasound 07/11/2015 diagnostic left mammogram 07/06/2015 bilateral digital screening mammogram examination BREAST PARENCHYMAL COMPOSITION: There are scattered areas of fibroglandular density. FINDINGS: There is no evidence of suspicious mass, calcification, or architectural distortion to sugg est malignancy in either breast. There has been no suspicious interval change. IMPRESSION: 1. No mammographic evidence of malignancy. 2. Recommend routine screening mammography in one year. BI-RADS Category 1: Negative Reviewed, dictated and finalized at location A.
== END 2021-04-24 09:37 | disposition home or self-care (01) ==
LOC: ANHIMG 09:39
PROVIDERS: PCP Family Medicine Adolescent Medicine; Visit Provider Physician Assistant
DX: Z12.31 Encounter for screening mammogram for malignant neoplasm of breast (principal)
CPT/HCPCS: 77063; 77067

== ENCOUNTER → 2021-09-01 00:02 | Outpatient (CLI) | payer BC, SELFPAY ==
[2021-09-01 11:43] LABS: SARS-CoV-2 RNA PCR Negative
== END ==
PROVIDERS: PCP Family Medicine Adolescent Medicine; Visit Provider Internal Medicine Gastroenterology
DX: Z01.812 Encounter for preprocedural laboratory examination (principal); Z20.822 Contact with and (suspected) exposure to COVID-19
CPT/HCPCS: C9803; U0003; U0005

== ENCOUNTER 2021-09-05 00:05 | Day surgery (SDC) | payer BC, SELFPAY ==
[2021-08-24 14:56] VITALS: BMI 27.3
--- NOTE | 2021-09-05 09:10 | WPDANESEPPF ---
Anes - Initial Pre Proc Eval Procedure: Operation Date: 09/05/21 11:00 Proposed Procedures p Esophagogastroduodenoscopy - James Posadas MD Date/Time: 09/05/21 09:10 Surgeon: James Posadas MD Pre Op Diagnosis: GERD Patient Data Age: 60 Gender: F Height: 1.57 m Weight: 68 kg Allergies Allergy/AdvReac Type Severity Reaction Status Date / Time codeine AdvReac Intermediate Nausea Verified 09/05/21 09:44 morphine AdvReac Intermediate Nausea Verified 09/05/21 09:44 Home Medications Medication Instructions Recorded Confirmed Type aspirin 81 mg tablet,delayed 81 mg PO DAILY 03/22/20 08/24/21 History release carisoprodol 350 mg tablet 350 mg PO PRN PRN 03/22/20 08/24/21 History hydroxyzine HCl 25 mg tablet 25 mg PO DAILY PRN 03/22/20 08/24/21 History losartan 100 mg tablet 100 mg PO DAILY 03/22/20 08/24/21 History pantoprazole 40 mg tablet,delayed 40 mg PO QAM 03/22/20 08/24/21 History release sumatriptan succinate 100 mg tablet 100 mg PO PRN PRN 03/22/20 08/24/21 History hydrochlorothiazide 25 mg tablet 25 mg PO DAILY tablet 10/30/20 08/24/21 History albuterol sulfate 90 mcg/actuation 1 inh INHALATION Q4-6H PRN #8.5 g 04/30/21 08/24/21 Rx aerosol inhaler B-complex with vitamin C [Super B 1 cap PO DAILY 06/04/21 08/24/21 History Complex-Vitamin C] biotin 10 mg PO DAILY 06/04/21 08/24/21 History cholecalciferol (vitamin D3) 2,000 units PO DAILY 06/04/21 08/24/21 History hydroxyzine HCl 50 mg tablet 50 mg PO DAILY tablet 07/26/21 08/24/21 History trazodone 100 mg tablet 100 mg PO DAILY #30 tablet 09/03/21 Rx Patient hx anesthesia problems: none Family hx anesthesia problems: none Results Review: All pre-operative results and documents have been reviewed as part of the pre-operative evaluation. [facility] Past Medical History Medical History (Updated 07/26/21 @ 09:56 by James Posadas MD) Anxiety Chronic cough Colon cancer screening GERD (gastroesophageal reflux disease) History of fracture of left ankle (~09/2000) History of meningitis Hypertension Surgical History Surgical History History of bilateral carpal tunnel release (~2012) History of knee surgery (~11/1991) Crushed Rt Knee & Fx Femur History of repair of right rotator cuff (~04/28/20) History of right knee surgery (~05/1992) Family History Family History Unknown Melanoma Parkinson disease Dementia Father Melanoma DVT (deep venous thrombosis) Other Diabetes mellitus Hypertension Social History Social History Alcohol intake: current Drinks per week: 5 Substance use: never Substance use type: does not use Living arrangements: with family Gender identity (if verbalized by the patient): Female Spiritual care concerns: No Anes - Eval Final PreProcedure Day of Procedure 09/05/21 09:10 Patient weight: overweight Heart: regular rate and rhythm Lungs: clear to auscultation and normal air movement Airway: Mallampati scale class II Neurological: alert and oriented Last oral intake: >/= 8 hours ASA classification: II Emergent: no Anesthetic plan: proceed Anesthesia type and monitoring: general GIVS Results Review: All pre-operative results and documents have been reviewed as part of the pre-operative evaluation. Informed Consent: The patient's anesthetic plan and its attendant risks and benefits were discussed with the patient/family/POA. Questions were solicited and answers provided to the satisfaction of the patient/family/POA.
[2021-09-05 09:45] VITALS: BP 118/62; PULSE 71; RESP 20; TEMP 36.4; O2SAT 100
[2021-09-05] MEDS: LACTATED RINGERS 1,000 ML 150 ML IV CONT (09:58)
--- NOTE | 2021-09-05 11:11 | PM.HPGS ---
History of Present Illness History of Present Illness Consent: Risks, benefits, and alternatives have been discussed and questions answered. Patient agrees to proceed with procedure. Chief complaint: GERD Narrative: Nanci Irene is a 60 year old female with gerd controlled for the most part with protonix that she has been taking for years but never had egd Review of Systems Constitutional: Constitutional: Denies headache(s) and Denies weakness Eyes: Eyes: Denies blurry vision ENT: Reports Normal hearing present, Denies headache(s) and Denies neck pain Cardiovascular: Cardiovascular: Denies chest pain and Denies dyspnea Respiratory: Respiratory: Denies dyspnea Gastrointestinal: Gastrointestinal: Reports no additional gastrointestinal complaints Genitourinary: Genitourinary: Denies dysuria Musculoskeletal: Musculoskeletal: Denies neck pain Integumentary/Breasts: Skin/Breast: Denies dry skin Neurologic: Reports Normal hearing present, Denies headache(s) and Denies weakness Psychiatric: Psychiatric: Denies anxiety Endocrine: Endocrine: Denies change in body appearance Hematologic/Lymphatic: Hematologic/Lymphatic: Denies easy bleeding Allergic/Immunologic: Allergic/Immunologic: Denies urticaria PMF Past Medical History Medical History (Updated 07/26/21 @ 09:56 by James Posadas MD) Anxiety Chronic cough Colon cancer screening GERD (gastroesophageal reflux disease) History of fracture of left ankle (~09/2000) History of meningitis Hypertension Surgical History Surgical History History of bilateral carpal tunnel release (~2012) History of knee surgery (~11/1991) Crushed Rt Knee & Fx Femur History of repair of right rotator cuff (~04/28/20) History of right knee surgery (~05/1992) Family History Family History Unknown Melanoma Parkinson disease Dementia Father Melanoma DVT (deep venous thrombosis) Other Diabetes mellitus Hypertension Social History Social History Alcohol intake: current Drinks per week: 5 Substance use: never Substance use type: does not use Living arrangements: with family Gender identity (if verbalized by the patient): Female Spiritual care concerns: No Meds Home Medications and Allergies Home Medications Medication Instructions Recorded Confirmed Type aspirin 81 mg tablet,delayed 81 mg PO DAILY 03/22/20 08/24/21 History release carisoprodol 350 mg tablet 350 mg PO PRN PRN 03/22/20 08/24/21 History hydroxyzine HCl 25 mg tablet 25 mg PO DAILY PRN 03/22/20 08/24/21 History losartan 100 mg tablet 100 mg PO DAILY 03/22/20 08/24/21 History pantoprazole 40 mg tablet,delayed 40 mg PO QAM 03/22/20 08/24/21 History release sumatriptan succinate 100 mg tablet 100 mg PO PRN PRN 03/22/20 08/24/21 History hydrochlorothiazide 25 mg tablet 25 mg PO DAILY tablet 10/30/20 08/24/21 History albuterol sulfate 90 mcg/actuation 1 inh INHALATION Q4-6H PRN #8.5 g 04/30/21 08/24/21 Rx aerosol inhaler B-complex with vitamin C [Super B 1 cap PO DAILY 06/04/21 08/24/21 History Complex-Vitamin C] biotin 10 mg PO DAILY 06/04/21 08/24/21 History cholecalciferol (vitamin D3) 2,000 units PO DAILY 06/04/21 08/24/21 History hydroxyzine HCl 50 mg tablet 50 mg PO DAILY tablet 07/26/21 08/24/21 History trazodone 100 mg tablet 100 mg PO DAILY #30 tablet 09/03/21 Rx Allergies Allergy/AdvReac Type Severity Reaction Status Date / Time codeine AdvReac Intermediate Nausea Verified 09/05/21 09:44 morphine AdvReac Intermediate Nausea Verified 09/05/21 09:44 Vital Signs Vital Signs - 24 hr 09/05/21 09:45 Temperature 97.6 F Pulse Rate 71 Respiratory Rate 20 Blood Pressure 118/62 Pulse Oximetry 100 Exam Const: General: comfortable and no acute distress HENMT:
[2021-09-05 11:29] VITALS: BP 96/65; PULSE 60; RESP 18; O2SAT 100
[2021-09-05 11:39] VITALS: BP 118/73; PULSE 57; RESP 22; O2SAT 98
[2021-09-05 11:49] VITALS: BP 129/79; PULSE 62; RESP 17; O2SAT 99
== END 2021-09-05 11:58 | disposition home or self-care (01) ==
PROVIDERS: PCP Family Medicine Adolescent Medicine; Visit Provider Internal Medicine Gastroenterology
PROC: 0DJ08ZZ Inspection of Upper Intestinal Tract, Via Natural or Artificial Opening Endoscopic (ICD-10-PCS; CPT 43235; principal; 2021-09-05 11:00)
DX: K21.9 Gastro-esophageal reflux disease without esophagitis (principal); K29.50 Unspecified chronic gastritis without bleeding; I10 Essential (primary) hypertension; F41.9 Anxiety disorder, unspecified; Z79.82 Long term (current) use of aspirin
CPT/HCPCS: 43239; 88305; J2704; J7120

== ENCOUNTER 2021-09-11 11:25 | Outpatient (CLI) | payer BC, SELFPAY ==
[2021-09-11 12:15] LABS: LDL Cholesterol Direct 109 mg/dL
[2021-09-11 12:16] LABS: Alanine Aminotransferase 15 U/L (4-35); Albumin Level 4.4 g/dL (3.5-5.1); Alkaline Phosphatase 58 U/L (38-126); Anion Gap 6 mmol/L (8-16); Aspartate Amino Transferase 24 U/L (14-36); Bilirubin,Total 0.5 mg/dL (0.2-1.3); Blood Urea Nitrogen 17 mg/dL (7-17); Calcium 9.5 mg/dL (8.4-10.2); Carbon Dioxide 30 mmol/L (22-30); Chloride 96 mmol/L (98-107); Cholesterol 253 mg/dL (0-200); Estimated Glomerular Filt Rate 50; Glucose 87 mg/dL (65-110); HDL Direct 87 mg/dL; Magnesium 1.7 mg/dL (1.6-2.3); Sodium 132 mmol/L (137-145); Triglycerides 40 mg/dL (<150)
== END 2021-09-11 11:26 | disposition home or self-care (01) ==
LOC: ANHLAB 11:26
PROVIDERS: PCP Family Medicine Adolescent Medicine; Visit Provider Physician Assistant
DX: G47.62 Sleep related leg cramps (principal); E78.2 Mixed hyperlipidemia; Z20.822 Contact with and (suspected) exposure to COVID-19; I10 Essential (primary) hypertension
CPT/HCPCS: 36415; 80053; 80061; 83735

== ENCOUNTER 2021-12-18 09:25 | Outpatient (CLI) | payer OTHER, SELFPAY ==
--- NOTE | 2021-12-18 09:30 | ECG_ITS ---
Measurements Intervals [place] Rate: 62 P: -86 WY: 143 QRS: 20 QRSD: 97 T: 2 QT: 383 QTc: 391 Interpretive Statements SINUS RHYTHM LOW QRS VOLTAGE IN PRECORDIAL LEADS COMPARED TO ECG 01/08/2021 12:12:25 NO SIGNIFICANT CHANGES Electronically Signed On 12-18-2021 10:05:21 CDT by Paul Wise M.D.
[2021-12-18 10:03] LABS: Anion Gap 4 mmol/L (8-16); Blood Urea Nitrogen 10 mg/dL (7-17); Calcium 9.1 mg/dL (8.4-10.2); Carbon Dioxide 29 mmol/L (22-30); Chloride 100 mmol/L (98-107); Estimated Glomerular Filt Rate > 60; Glucose 92 mg/dL (65-110); Potassium 4.1 mmol/L (3.4-5.0); Sodium 133 mmol/L (137-145)
== END 2021-12-18 09:26 | disposition home or self-care (01) ==
LOC: ANHSURGERY 09:29
PROVIDERS: Anesthesiology; PCP Family Medicine Adolescent Medicine; Visit Provider Surgery Plastic and Reconstructive Surgery
DX: Z01.818 Encounter for other preprocedural examination (principal); I10 Essential (primary) hypertension
CPT/HCPCS: 36415; 80048; 93005

== ENCOUNTER 2021-12-20 00:51 | Day surgery (SDC) | payer OTHER, SELFPAY ==
[2021-12-17 08:44] VITALS: BMI 27.3
--- NOTE | 2021-12-17 08:48 | PC.NURSE ---
Report to the Outpatient Waiting Room, entrance under the green pavilion located off [facility], at time _0600_ on date _[id number]_. OR Time: _07_. - You and your visitor will be asked a series of questions to screen for COVID 19 for your protection. - Only one visitor is allowed at this time. - The patient visitor is requested to leave or wait in car when not with patient. - A mask is required within the hospital. Patients may have clear liquids (water, carbonated beverages, clear teas, apple juice) until 3 hours prior to surgery with a maximum of 20 ounces. - No food from midnight until time of surgery Take the following medications with a SIP of water the morning of surgery: Medications to discontinue per physician ____All vitamins and supplements Date to take last dose stop today. Please no make-up, nail lebanese, hairspray, perfume, deodorant, or body powder the day of surgery. No jewelry (including any body piercings) or valuables the day of surgery, leave them at home. Please take a shower or bath the night before, or the morning of, surgery with an antibacterial soap. Wear comfortable, loose fitting clothing. Children are encouraged to wear pajamas. - Jewelry must be removed prior to entering the operating room. Rings and piercings that are not removed may be cut off. - The hospital will not accept responsibility for valuables. - Please leave all valuables, including medications, at home the day of surgery. If you are going home after surgery, a licensed charter and tour bus driver must drive you home. - NO public transportation without another adult. - We recommend that an adult stay with you for 24 hours following discharge. - We also recommend that you do not drive, make important decision, drink alcoholic beverages, or take any drugs that were not prescribed by your health care provider for at least 24 hours after your discharge time. Follow any additional instructions given to you from your surgeon. If you or anyone in your household have experienced Covid symptoms in the past week, please notify your surgeon or the nurse liaison at the phone number below for possible testing. Telephone instructions given to ___Patient and asked if any additional questions and then verbalized understanding. Patient advised to call surgeon office or pre surgery nurse liaison [phone] if any additional questions.
[2021-12-20] VITALS (10 sets, daily range): BP systolic 120–152; BP diastolic 57–79; PULSE 84–108; RESP 14–20; TEMP 36.2–37.2; O2SAT 94–100
[2021-12-20 06:41] LABS: Urine Cotinine NEGATIVE
[2021-12-20] MEDS: LACTATED RINGERS 1,000 ML 30 ML IV CONT ×2 (06:45→10:06)
--- NOTE | 2021-12-20 06:48 | WPDANESEPPF ---
Anes - Initial Pre Proc Eval Procedure: Operation Date: 12/20/21 07:30 Proposed Procedures p Upper and Lower Blepharoplasty - Bobby Cardoza MD s Temporal Brow Lift - Bobby Cardoza MD Date/Time: 12/20/21 06:48 Surgeon: Bobby Cardoza MD Pre Op Diagnosis: Brow Ptosis,Dermatochalasis-U/L Eyelids Jorge Patient Data Age: 61 Gender: F Height: 1.57 m Weight: 68 kg Allergies Allergy/AdvReac Type Severity Reaction Status Date / Time codeine AdvReac Intermediate Nausea Verified 12/20/21 06:24 morphine AdvReac Intermediate Nausea Verified 12/20/21 06:24 Home Medications Medication Instructions Recorded Confirmed Type aspirin 81 mg tablet,delayed 81 mg PO DAILY 03/22/20 12/20/21 History release (Adult Low Dose Aspirin) pantoprazole 40 mg tablet,delayed 40 mg PO QAM 03/22/20 12/20/21 History release hydrochlorothiazide 25 mg tablet 25 mg PO DAILY 10/30/20 12/17/21 History albuterol sulfate 90 mcg/actuation 1 inh inhalation Q4-6H PRN 04/30/21 12/20/21 Rx aerosol inhaler shortness of breath or wheezing #8.5 grams B-complex with vitamin C [Super B 1 cap PO DAILY 06/04/21 12/20/21 History Complex-Vitamin C] biotin 10,000 mg PO DAILY 06/04/21 12/20/21 History cholecalciferol (vitamin D3) 2,000 units PO DAILY 06/04/21 12/20/21 History hydroxyzine HCl 50 mg tablet 50 mg PO QHS 09/10/21 12/20/21 History naproxen sodium 220 mg tablet (All 220 mg PO BID PRN leg pain 09/10/21 09/10/21 History Day Pain Relief) sumatriptan succinate 100 mg tablet See Rx Instructions PO PRN PRN 09/10/21 12/20/21 History Migraine Headache trazodone 100 mg tablet See Rx Instructions PO QHS PRN 09/10/21 12/20/21 History Insomnia carisoprodol 350 mg tablet 350 mg PO TID PRN Migraine 10/15/21 12/20/21 Rx Headache #30 tabs losartan 100 mg tablet 100 mg PO DAILY #90 tabs 10/15/21 12/20/21 Rx docusate sodium 100 mg capsule 100 mg PO DAILY #14 caps 11/22/21 Rx (Colace) hydrocodone 5 mg-acetaminophen 325 1 tablet PO Q6H PRN pain #30 tabs 11/22/21 11/22/21 Rx mg tablet ondansetron HCl 4 mg tablet 4 mg PO Q8H #21 tabs 11/22/21 Rx Laboratory Tests 12/20/21 06:27 Cotinine Negative Patient hx anesthesia problems: none Family hx anesthesia problems: none Results Review: All pre-operative results and documents have been reviewed as part of the pre-operative evaluation. [facility] Past Medical History Medical History Anxiety Chronic cough Colon cancer screening Generalized anxiety disorder GERD (gastroesophageal reflux disease) History of fracture of left ankle (~09/2000) History of meningitis Hypertension Migraines Surgical History Surgical History History of ankle surgery Left, 2000 History of bilateral carpal tunnel release (~2012) History of cardiac cath History of knee surgery (~11/1991) Crushed Rt Knee & Fx Femur History of repair of right rotator cuff (~04/28/20) History of right knee surgery (~05/1992) History of tonsillectomy Family History Family History Unknown Melanoma Parkinson disease Dementia Father Melanoma DVT (deep venous thrombosis) Other Diabetes mellitus Hypertension Social History Social History Smoking status: Never smoker Second hand tobacco smoke exposure: No Alcohol intake: current Drinks per week: 5 Substance use: never Substance use type: does not use Living arrangements: with family Gender identity (if verbalized by the patient): Female Sexual Orientation (if Verbalized by the Patient): Straight or Heterosexual Spiritual care concerns: No Agree to blood products: Yes Anes - Eval Final PreProcedure Day of Procedure 12/20/21 06:48 Patient weight: overweight Heart: regular rate and rhythm Anu
--- NOTE | 2021-12-20 07:21 | WPDHPUPDATE1 ---
History and Physical Update Update Date/Time: 12/20/21 07:21 History and Physical has been reviewed, including an updated exam of the patient. There are NO changes in the patient's condition. Risks, benefits, and alternatives have been discussed and questions answered. Patient agrees to proceed with procedure.
--- NOTE | 2021-12-20 07:22 | P.OP_ITS ---
Procedure Note - Detailed Date of Procedure 12/20/21 Pre-op Diagnosis Brow Ptosis,Dermatochalasis-U/L Eyelids Jorge Post-op Diagnosis Same Procedure Performed 1. Bilateral temporal subcutaneous brow lift. 2. Bilateral upper lid blepharoplasty. 3. Bilateral transconjunctival lower lid blepharoplasty with pinch blepharoplasty. Surgeon Bobby Cardoza MD Anesthesia General Description of Procedure Preoperatively the risks, benefits, alternatives were discussed in extensive detail. I want her to be very realistic about the risks involved as well as expectations. I was very up front honest about the realistic expectations of outcome as well as limitations of the procedure. She is planning to proceed wi th lower lid laser treatment in the future as well. All questions were answered to her satisfaction today. Consent obtained. She was marked in the preoperative holding area with her verification. I did complete a pinch test with simulation of the brow lift of the upper lids in order to verify no evidence of lagophthalmos. She was taken to the operating room placed supine on the operating room table. Anesthesia was provided by anesthesiology and prepped and draped in a standard sterile fashion. Surgical time-out was taken. 1% lidocaine 0.25% Marcaine with was used anesthetize throughout. A 15 blade used to make an incision along the hairline starting the pupil lateral for the subcutaneous temporal brow lift. This was elevated just above the frontalis muscle. Dissection continued a cm above the rim as well as inferior lateral to the lateral canthus. I approximated the brow location and trimmed the skin flap as necessary. This was tacked into place and I verified the positioning. I closed with 5 0 nylon. I sharply incised through the upper lid skin removing the skin flap. I then incised the orbicularis and open the medial and middle fat compartments. Only clearly excess adiposity was removed. I verified strict hemostasis. Using a 4- 0 Vicryl I provided lateral tarsal support bilateral support the lower lid. I then closed using running subcuticular 4-0 Prolene which was held in place with Steri-Strips bilateral. During the procedure at a corneal protector in place. I made a transconjunctival incision just inferior to the tarsal plate. I elevated preseptal down to the level of the orbital rim. I then incised the septum with care taken to protect the inferior oblique muscle removed just excess adiposity to a smooth contour.The lids were redraped. The sub ciliary incision was made and created a pinch blepharoplasty the. The skin was removed and closed with 5 0 fast-absorbing gut. She was woken taken the PACU without difficulty. All instrument sponge counts were correct at the end of the case. Estimated Blood Loss 10 Drains No Packing No Pathology None sent Complications No immediate complications Condition Stable Disposition PACU
[2021-12-20] MEDS: LIDO 1%/EPINEPHRINE/PF 1:200,000 30 ML VIAL 10 ML XX (07:32)
[2021-12-20] MEDS: BUPIVACAINE HCL 0.25% PF 30 ML VIAL INFILTRATE (07:32)
[2021-12-20] MEDS: ceFAZolin 2 GM/D5W 50 ML 2 GM/50 ML BAG IVPB (07:32)
[2021-12-20] MEDS: NEOMYCIN/POLYMYXIN/DEXAMETH OP OINT 3.5 GM TUBE 1 APPLIC EACH EYE (09:55)
[2021-12-20] MEDS: fentaNYL CITRATE INJ (*CRX) 100 MCG/2 ML VIAL 25 MCG IV PUSH ×4 (10:26→10:53)
[2021-12-20] MEDS: oxyCODONE HCL (*CRX) 5 MG TAB IR PO (11:55)
== END 2021-12-20 12:47 | disposition home or self-care (01) ==
PROVIDERS: PCP Family Medicine Adolescent Medicine; Visit Provider Surgery Plastic and Reconstructive Surgery
PROC: (CPT 15822; principal; 2021-12-20 07:30)
PROC: (CPT 15824; 2021-12-20 07:30)
DX: Z41.1 Encounter for cosmetic surgery (principal); H57.813 Brow ptosis, bilateral; H02.835 Dermatochalasis of left lower eyelid; H02.834 Dermatochalasis of left upper eyelid; H02.831 Dermatochalasis of right upper eyelid; H02.832 Dermatochalasis of right lower eyelid; K21.9 Gastro-esophageal reflux disease without esophagitis; I10 Essential (primary) hypertension; L90.5 Scar conditions and fibrosis of skin; Z79.82 Long term (current) use of aspirin; Z79.51 Long term (current) use of inhaled steroids; F41.1 Generalized anxiety disorder; Z79.899 Other long term (current) drug therapy
CPT/HCPCS: 15822; 15824; 80307; A9270; J0171; J0690; J1100; J2250; J2405; J2704; J3010; J7030; J7120

== ENCOUNTER 2022-04-27 14:50 | Emergency (ER) | payer BC, SELFPAY ==
[2022-04-27 15:02] VITALS: BP 114/70; PULSE 72; RESP 18; TEMP 36.6; O2SAT 100
--- NOTE | 2022-04-27 15:08 | ED.GENADULT ---
HPI - General Adult General Chief complaint: Unspecified Stated complaint: tongue pain History of Present Illness HPI narrative: Patient is a 61-year-old female who presents to the [facility] via POV for evaluation of a tongue problem that began1 week ago. She states her symptoms began with a burning sensation. She noticed white patches today prompting today's visit. She has been on 2 rounds of prednisone within the past 2 weeks. Denies taking otc meds for symptoms. Nothing improves symptoms. Drinking and eating worsen the burning sensation. Related Data Home Medications Medication Instructions Recorded Confirmed aspirin 81 mg tablet,delayed 81 mg PO DAILY 03/22/20 04/27/22 release (Adult Low Dose Aspirin) pantoprazole 40 mg tablet,delayed 40 mg PO QAM 03/22/20 04/27/22 release hydroxyzine HCl 50 mg tablet 50 mg PO QHS 09/10/21 04/27/22 sumatriptan succinate 100 mg tablet See Rx Instructions PO PRN PRN 09/10/21 04/27/22 Migraine Headache biotin 10,000 mcg capsule 10,000 mcg PO DAILY 04/27/22 04/27/22 carisoprodol 350 mg tablet 350 mg PO TID 04/27/22 04/27/22 cholecalciferol (vitamin D3) 50 50 mcg PO DAILY 04/27/22 04/27/22 mcg (2,000 unit) tablet Allergies Allergy/AdvReac Type Severity Reaction Status Date / Time hydrochlorothiazide Allergy Intermediate Rash Verified 04/27/22 15:10 codeine AdvReac Intermediate Nausea Verified 04/27/22 15:10 morphine AdvReac Intermediate Nausea Verified 04/27/22 15:10 Review of Systems Review of Systems: Denies fever, chills, sweats, poor po intake, appetite changes, dental pain, sinus problems, ear problems, runny nose, nasal congestion, tongue swelling, drooling, difficulty swallowing, voice changes, sob, nausea, vomiting, dizziness, chest pain PMFSH Past Medical History Medical History Anxiety Chronic cough Colon cancer screening Generalized anxiety disorder GERD (gastroesophageal reflux disease) History of fracture of left ankle (~09/2000) History of meningitis Hypertension Migraines Surgical History Surgical History History of ankle surgery Left, 2000 History of bilateral carpal tunnel release (~2012) History of cardiac cath History of knee surgery (~11/1991) Crushed Rt Knee & Fx Femur History of repair of right rotator cuff (~04/28/20) History of right knee surgery (~05/1992) History of tonsillectomy Family History Family History Unknown Melanoma Parkinson disease Dementia Father Melanoma DVT (deep venous thrombosis) Other Diabetes mellitus Hypertension Social History Social History Smoking status: Never smoker Second hand tobacco smoke exposure: No Alcohol intake: current Drinks per week: 5 Substance use: never Substance use type: does not use Gender identity (if verbalized by the patient): Female Sexual Orientation (if Verbalized by the Patient): Straight or Heterosexual Spiritual care concerns: No Agree to blood products: Yes Course Course Emergency Course: clotrimazole rob for treatment of oral candidiasis. Follow up with PCP in 2-3 days. ER is symptoms worsen. Level of Care: Express Care Visit Vital Signs Vital signs: Vital Signs Temperature 97.9 F 04/27/22 15:02 Pulse Rate 72 04/27/22 15:02 Respiratory Rate 18 04/27/22 15:02 Blood Pressure 114/70 04/27/22 15:02 Pulse Oximetry 100 04/27/22 15:02 Oxygen Delivery Room Air 04/27/22 15:02 Temperature 97.9 F 04/27/22 15:02 Pulse Rate 72 04/27/22 15:02 Respiratory Rate 18 04/27/22 15:02 Blood Pressure 114/70 04/27/22 15:02 Pulse Oximetry 100 04/27/22 15:02 Oxygen Delivery Room Air 04/27/22 15:02 Medical Decision Making Differential Diagnosis Differential Diagnosis:
== END 2022-04-27 15:26 | disposition home or self-care (01) ==
PROVIDERS: Emergency Provider Nurse Practitioner Family; PCP Family Medicine Adolescent Medicine
DX: B37.0 Candidal stomatitis (principal); K21.9 Gastro-esophageal reflux disease without esophagitis; I10 Essential (primary) hypertension; Z86.61 Personal history of infections of the central nervous system; F41.1 Generalized anxiety disorder; Z79.82 Long term (current) use of aspirin
CPT/HCPCS: 99213; G0463

== ENCOUNTER 2022-10-08 09:01 | Outpatient (CLI) | payer BC, SELFPAY ==
[2022-10-08 09:42] LABS: Alanine Aminotransferase 17 U/L (6-35); Albumin Level 4.1 g/dL (3.5-5.1); Alkaline Phosphatase 59 U/L (38-126); Anion Gap 2 mmol/L (8-16); Aspartate Amino Transferase 21 U/L (14-36); Bilirubin,Total 0.6 mg/dL (0.2-1.3); Blood Urea Nitrogen 19 mg/dL (7-17); Calcium 9.1 mg/dL (8.4-10.2); Carbon Dioxide 30 mmol/L (22-30); Chloride 100 mmol/L (98-107); Cholesterol 259 mg/dL (0-200); Estimated Glomerular Filt Rate > 60; Glucose 92 mg/dL (65-110); HDL Direct 101 mg/dL; Potassium 4.2 mmol/L (3.4-5.0); Sodium 132 mmol/L (137-145); Triglycerides 43 mg/dL (<150)
[2022-10-08 09:53] LABS: LDL Cholesterol Direct 117 mg/dL
== END 2022-10-08 09:02 | disposition home or self-care (01) ==
PROVIDERS: PCP Family Medicine Adolescent Medicine; Visit Provider Physician Assistant
DX: E78.00 Pure hypercholesterolemia, unspecified (principal); I10 Essential (primary) hypertension; Z71.3 Dietary counseling and surveillance
CPT/HCPCS: 36415; 80053; 80061

== ENCOUNTER 2022-12-23 08:48 | Outpatient (CLI) | payer BC, SELFPAY ==
--- NOTE | ~2022-12-23 | MM_ITS ---
EXAMINATION: MM screening ashli BI w vivian HISTORY: Screening mammogram TECHNIQUE: Craniocaudal and mediolateral oblique 3-D tomosynthesis images were obtained and synthetic 2-D images were generated. CAD analysis was submitted and interpreted. COMPARISON: 04/24/2021, 05/25/2019, 03/18/2018 bilateral screening mammogram examinations BREAST PARENCHYMAL COMPOSITION: There are scattered areas of fibroglandular density. FINDINGS: There is no evidence of suspicious mass, calcification, or architectural distortion to sugg est malignancy in either breast. There has been no suspicious interval change. IMPRESSION: 1. No mammographic evidence of malignancy. 2. Recommend routine screening mammography in one year. BI-RADS Category 1: Negative Reviewed, dictated and finalized at location A.
== END 2022-12-23 08:49 | disposition home or self-care (01) ==
LOC: ANHIMG 08:51
PROVIDERS: PCP Family Medicine Adolescent Medicine; Visit Provider Family Medicine Adolescent Medicine
DX: Z12.31 Encounter for screening mammogram for malignant neoplasm of breast (principal)
CPT/HCPCS: 77063; 77067

== ENCOUNTER 2025-01-19 12:49 | Outpatient (CLI) | payer MEDICARE, SELFPAY ==
--- NOTE | ~2025-01-19 | MM_ITS ---
EXAMINATION: MM screening ashli BI w vivian HISTORY: Screening TECHNIQUE: Craniocaudal and mediolateral oblique 3-D tomosynthesis images were obtained and synthetic 2-D images were generated. CAD analysis was submitted and interpreted. COMPARISON: Comparison to multiple prior studies sequentially, with oldest reviewed study dated 2015. BREAST PARENCHYMAL COMPOSITION: There are scattered areas of fibroglandular density. FINDINGS: There is no evidence of suspicious mass, calcification, or architectural distortion to sug gest malignancy in either breast. IMPRESSION: 1. No mammographic evidence of malignancy. 2. Recommend routine screening mammography in one year. BI-RADS Category 1: Negative Reviewed, dictated and finalized at location B.
== END 2025-01-19 12:50 | disposition home or self-care (01) ==
PROVIDERS: PCP Family Medicine Adolescent Medicine; Visit Provider Nurse Practitioner Family
DX: Z12.31 Encounter for screening mammogram for malignant neoplasm of breast (principal)
CPT/HCPCS: 77063; 77067

== ENCOUNTER 2025-01-19 13:37 | Outpatient (CLI) | payer MEDICARE, SELFPAY ==
--- OUTSIDE RECORDS SUMMARY | 2025-01-19 13:43 | XMS_ITS | Encounter Summary ---
Author Organization [facility] Health Address [address] [place] [address] Care Team Providers Care Photographer'S Model Name Role Phone Campos Noel MD Primary Care Provider + Encounter Details Date Type Department Care Team (Late st Contact Info) Description 04/15/2022 Lab Requisition [facility] DermPath Lab [address] [place] [address] Urban Munson MD [address] [place] [address] Social History Tobacco Use Types Packs/Day Years Used Date Smoking Tobacco: Never Assessed Comments Unknown Sex and Gender Information Value Date Recorded Sex Assigned at Not on file Legal 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 Gender Identity Not on file Sexual Orientation Not on file documented as of this encounter Plan of Treatment Not on file documented as of this encounter Procedures Procedure Name Priority Date/Time Associated Diagnosis Comments DERMATOPATHOLOGY Routine 04/15/2022 12:0 0 AM CDT documented in this encounter Results * DERMATOPATHOLOGY (04/15/2022 12:00 AM CDT) Case Report Dermatopathology Report Case: [id number] Authorizing Provider: Urban Munson MD Collected: 04/15/2022 12:00 AM Ordering Location: [facility] DermPath Lab Received: 04/15/2022 03:45 PM Pathologist: Sanjuanita Kurtz MD Specimen: Skin, lower back 1:02 PM CDT DERMATOPATHOLOGY LABORATORY Final Diagnosis Specimen A. SKIN, lower back: SUPERFICIAL PERIVASCULAR LYMPHOCYTIC INFILTRATE WITH EOSINOPHILS AND NEUTROPHILS (L27.0) (see microscopic description and comment) 1:02 PM CDT DERMATOPATHOLOGY LABORATORY at 1302 CDT Clinical History R/O Topher's, Eczema, Drug Eruption, Derm 1:02 PM CDT DERMATOPATHOLOGY LABORATORY Gross Description Specimen A: Received is one formalin filled container labeled with the patient's name and designated lower back. The specimen consists of a shave biopsy measuring [id number] and another piece of tissue measuring [id number]. Jar 0. 1:02 PM CDT DERMATOPATHOLOGY LABORATORY Microscopic Description Specimen A. SKIN, lower back: Sections show a perivascular and interstitial infiltrate including lymphocytes, neutrophils and eosinophils. There are no prominent epidermal or interface changes. Grocott's methenamine silver (GMS) stain fails to highlight fungal elements in the available sections. Additional deeper sections were obtained and reviewed. COMMENT: These histological findings can be seen in an urticaria, hypersensitivity reactions to an ingested allergen or arthropod bite reaction. Clinical correlation is recommended. 1:02 PM CDT DERMATOPATHOLOGY LABORATORY Disclaimer An external and internal positive and negative controls are appropriate for the histochemical, immunohistochemical and immunofluorescence stain(s) in this case (if any), except where stated explicitly. The performance characteristics of the stain(s) cited in this report were developed and its performance characteristic determined by the Dermatopathology Laboratory at [facility], directed by Dr. Maureen Abraham. These tests need not be, and therefore are not, approved by the [place] Food and Drug Administration. The tests are used for clinical purposes. Billing Codes Specimen Charges Stain Charges 47846 1 24717 1 2 1:02 PM CDT DERMATOPATHOLOGY LABORATORY Embedded Images 1:02 PM CDT DERMATOPATHOLOGY LABORATORY Pathology/Cytolog y TISSUE SPECIMEN FROM SKIN / Unknown 04/15/2022 04/15/2022 3:45 PM CDT us Urban Munson MD LAB - PATHOLOGY/CYTOLOGY ORDERAB LES Final Result DERMATOPATHOLOGY LABORATORY [facility] - Department of Dermatology [facility] Specialized Medicine [address] [place] [address], [address] [place] [address], [facility] [phone] documented in this encounter Visit Diagnoses Not on filedocumented in this encounter Care Teams Photographer'S Model Relationship Specialty Start Date End Date Campos Noel MD [address] [address] PCP - General 09/06/21 documented as of this encounter
--- OUTSIDE RECORDS SUMMARY | 2025-01-19 13:43 | XMS_ITS | Clinical Summary ---
Author Organization [facility] [address] [facility] Address [address] [place] [phone] Care Team Providers Care Grated Cheese Maker Name Role Phone Campos Noel MD Primary Care Prov ider Sahil Houston MD Unavailable [phone] Allergies Active Allergy Reactions Criticality Noted Date Comments Codeine Opioids - Morphine Analogues Medications hydroCHLOROthia zide (HYDRODIURIL) 25 mg tablet Take 25 mg by mouth daily Active losartan (COZAAR) 100 mg tablet Take 100 mg by mouth daily Active pantoprazole DR (PROTONIX) 40 mg EC tablet Take 40 mg by mouth daily Active aspirin 81 mg enteric coated tablet Take 81 mg by mouth daily Active cholecalciferol (VITAMIN D-3) 25 mcg (1,000 unit) tablet Take 1,000 Units by mouth daily Active senna (SENOKOT) 8.6 mg tablet Take 1 tablet by mouth daily Active LORazepam (ATIVAN) 1 mg tablet Take 1 mg by mouth as needed for anxiety Active carisoprodoL (SOMA) 350 mg tabletIndicatio ns:Muscle Spasm Take 350 mg by mouth 4 (four) times a day as needed for muscle spasms Active SUMAtriptan (IMITREX) 100 mg tabletIndicatio ns:Migraine Take 100 mg by mouth once as needed for migraine Active ondansetron (ZOFRAN) 8 mg tablet Take by mouth as needed for nausea or vomiting Active hydrOXYzine (ATARAX) 25 mg tablet Take 25 mg by mouth 3 (three) times a day as needed for itching Active riboflavin (Vitamin B-2) 100 mg tabletIndicatio ns:Riboflavin Deficiency 200 mg Active coenzyme Q10 400 mg capsule 400 mg Activ e Active Problems Problem Noted Date Diagnosed Date Positive SB (antinuclear antibody) 02/04/2020 Overview (02/10/2020): Labs (02/04/2020): negative AIVSE (): +SB 1:1280 speckled CXR (02/04/2020): chronic T8 fx deformity; otherwise unremarkable Assessment & Plan (08/25/2020 11:56 AM DRAW MACHINE OPERATOR): Initially presented with a positive SB 1:640 and BAHENA x2 years. Repeat serologies with AVISE revealed a positive SB 1:1280 speckled pattern but was otherwise unremarkable for any other autoantibodies. CXR (02/04/2020) was unremarkable. Cardiology and pulmonology work up were normal per patient report. Today, she continues to deny any other CTD symptoms. No obvious synovitis or tenderness noted on peripheral exam today. BAHENA remains intermittent and reports elevated heart rate during episodes. Based on previously elevated SB, will repeat serologies and AVISE today. Will call patient with results. If serologies remain stable or unremarkable then unlikely symptoms are related to any underlying rheumatological etiology and will have patient follow up as needed. Discussed with Dr. Houston. Assessment & Plan (02/18/2020 11:50 AM CDT): Initially presented with a positive SB 1:640 and BAHENA x2 years. Repeat serologies with AVISE revealed a positive SB 1:1280 speckled pattern but was otherwise unremarkable for any other autoantibodies. CXR (02/04/2020) was unremarkable. Reports intermittent chest pain that she attributes to anxiety. Cardiology and pulmonology work up were normal per patient report. Continues to deny any other CTD symptoms. No obvious synovitis or tenderness noted on peripheral exam today. At this time, there is no clinical evidence that would indicate a rheumatological cause for her chronic BAHENA and intermittent chest pain. Based on the elevated SB, will continue to monitor for any new or worsening symptoms that would suggest a connective tissue disease. Will repeat serologies and AVISE next visit. Follow up in 6 months. Sooner if needed. Seen with Dr. Houston. Assessment & Plan (02/04/2020 12:05 PM CDT): Patient presents with a positive SB 1:640 dense fine speckled pattern and BAHENA x2 years. Initially had chest pain as well but this has resolved itself spontaneously. Does note occasional recurrence of chest pain with anxiety. Cardiology and pulmonary work up were normal. Denies any peripheral joint pain or stiffness. No obvious synovitis or tenderness noted on exam today. Denies any CTD symptoms. Symptoms and exam are not overly suspicious for an autoimmune cause of her BAHENA. Due to a positive SB, will order appropriate serologies and radiographs to further evaluate. Follow up in 2 weeks. Sooner if needed. Seen with Dr. Houston. Surgical History Surgery Date Site/Laterality Comments [place] TONSILLECTOMY PRIMARY/SEC ONDARY <AGE 11 Tonsillectomy - (Added by TW Conv) Medical History Medical History Date Comments Personal history of other sp ecified conditions History of headache - (Added by TW Conv) Other fracture of unspecifie d lower leg, initial encounter for closed fracture Closed fracture of ankle - (Added by TW Conv) Family History Medical History Relation Name Comments Migraines Other Migraine Headac he - Father (as a child) (Added by TW Conv) Relation Name Status Comments Other Social History Tobacco Use Types Packs/Day Years Used Date Smoking Tobacco: Never Comments Unknown Sex and Gender Information Value Date Recorded Sex Assigned at Not on file Legal Sex Female 1:16 AM DRAW MACHINE OPERATOR Gender Identity Not on file Sexual Orientation Not on file Obstetrics History Last Filed Vital Signs Vital Sign Reading Time Taken Comments Blood Pressure 140/88 08/25/2020 10:55 AM DRAW MACHINE OPERATOR Pulse - - Temperature 36.6 C (97.8 F) 08/25/2020 10:55 AM DRAW MACHINE OPERATOR Respiratory Rate - - Oxygen Saturation - - Inhaled Oxygen Concentration - - Weight 77.6 kg (171 lb) 08/25/2020 10:55 AM DRAW MACHINE OPERATOR Height 157.5 cm (5' 2) 08/25/2020 10:55 AM DRAW MACHINE OPERATOR Body Mass Index 31.28 08/25/2020 10:55 AM DRAW MACHINE OPERATOR Plan of Treatment Not on file Insurance [employer] Care Teams Grated Cheese Maker Relationship Specialty Start Date End Date Campos Noel MD [address] [place] [id number] PCP - General Family Medicine 01/25/20 Sahil Houston MD [facility] [place] [address] Consulting Physician Rheumatology 01/25/20
--- OUTSIDE RECORDS SUMMARY | 2025-01-19 13:43 | XMS_ITS | Referral Summary ---
Author Organization [facility] [address] [facility] Address [address] [place] [phone] Care Team Providers Care Proof Carrier Name Role Phone Campos Noel MD Primary Care Prov ider Sahil Houston MD Unavailable [phone] Allergies Active Allergy Reactions Criticality Noted Date [...] unremarkable Assessment & Plan (08/25/2020 11:56 AM ANALYTICS INTERN): Initially presented with a positive SB 1:640 [...] Sooner if needed. Seen with Dr. Houston. Social History Tobacco Use Types Packs/Day Years Used Date Smoking Tobacco: Never Comments Unknown Sex and Gender Information Value Date Recorded Sex Assigned at Not on file Legal Sex Female 1:16 AM ANALYTICS INTERN Gender Identity Not on file Sexual Orientation Not on file Last Filed Vital Signs Vital Sign Reading Time Taken Comments Blood Pressure 140/88 08/25/2020 10:55 AM ANALYTICS INTERN Pulse - - Temperature 36.6 C (97.8 F) 08/25/2020 10:55 AM ANALYTICS INTERN Respiratory Rate - - Oxygen Saturation - - Inhaled Oxygen Concentration - - Weight 77.6 kg (171 lb) 08/25/2020 10:55 AM ANALYTICS INTERN Height 157.5 cm (5' 2) 08/25/2020 10:55 AM ANALYTICS INTERN Body Mass Index 31.28 08/25/2020 10:55 AM ANALYTICS INTERN Plan of Treatment Not on file Insurance [facility] Care Teams Proof Carrier Relationship Specialty Start Date End Date Campos Noel MD [address] [place] [address] PCP - General Family Medicine 01/25/20 Sahil Houston MD [facility] [place] [address] Consulting Physician Rheumatology 01/25/20
--- OUTSIDE RECORDS SUMMARY | 2025-01-19 13:43 | XMS_ITS | Clinical Summary ---
Author Organization [facility] Address [address] [place] [address] Care Team Providers Care Water Plant Operator Name Role Phone Campos Noel MD Primary Care Provider + Source Comments [facility],non-[facility] Affiliates and Associated Physician Practices is amultiple site organization consisting of ambulatory clinics and hospital sitesin [place], [place], [place] and [place]. This disclosure is being madepursuant to the Care Everywhere program and may not contain all information available regarding this patient. Last updated 18.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 Gender Identity Not on file Sexual Orientation Not on file Plan of Treatment Health Maintenance Due Date Last Done Comments BONE DENSITY TESTING 1959 COLOGUARD (AGES 45-75) - COL ON CA SCREENING 1959 COLON MONITORING 1959 COLONOSCOPY - COLON CA SCREENING 1959 CT COLONOGRAPHY - COLON CA SCREENING 1959 Colorectal Cancer Screening 1959 FIT - COLON CA SCREENING 1959 FLEX SIG - COLON CA SCREENING 1959 LIPID TESTING 1959 MAMMOGRAM 1959 HIV SCREENING 11/22/1974 HEPATITIS C SCREENING 11/18/1977 DTAP/TDAP/TD VACCINES (1 - Tdap) 11/22/1978 PAP SMEAR 11/22/1980 PNEUMOCOCCAL VACCINE 50+ (1 of 1 - PCV) 11/22/2009 ZOSTER VACCINE (1 of 2) 11/22/2009 COVID-19 VACCINE (1 - 2023-2 5 season) 2024 DEPRESSION SCREENING 06/30/2024 INFLUENZA VACCINE (#1) 2025 Respiratory Syncytial Virus (RSV) Vaccine Pt: or over 60 yrs (1 - 1-dose 75+ series) 11/22/2034 HEPATITIS B VACCINE Aged Out No longe r eligible based on patient's age to complete this topic HIB VACCINE Aged Out No longer eligi ble based on patient's age to complete this topic HPV VACCINE Aged Out No longer eligi ble based on patient's age to complete this topic MENINGOCOCCAL (Group B) VACC INE SHARED DECISION-MAKING Aged Out No longer eligibl e based on patient's age to complete this topic MENINGOCOCCAL GROUPS A/C/Y/W VACCINE Aged Out No longer eligible b ased on patient's age to complete this topic Insurance [facility] Care Teams Water Plant Operator Relationship Specialty Start Date End Date Campos Noel MD [address] [address] PCP - General 09/06/21
--- OUTSIDE RECORDS SUMMARY | 2025-01-19 13:43 | XMS_ITS | Clinical Summary ---
Author Organization [facility] Address [address] [address] Phone Care Team Providers Care Diagram Clerk Name Role Phone Campos Noel MD Primary Care Provider + Social History Tobacco Use Types Packs/Day Years Used Date Smoking Tobacco: Never Assessed Comments Unknown Sex and Gender Information Value Date Recorded Sex Assigned at Not on file Legal Sex Female 10:55 AM OUTREACH PROFESSIONAL Gender Identity Not on file Sexual Orientation Not on file Plan of Treatment Health Maintenance Due Date Last Done Comments Hepatitis C Virus (HCV) Screening 1960 TdaP Immunization 1959 Pap Smear 11/22/1980 Cervical Cancer Screening (CCS) 11/22/1989 HPV/Cotest 11/22/1989 Cologuard 11/22/2009 Immunochemical Fecal Occult Blood 11/22/2009 Mammogram 11/22/2009 Pneumococcal Immunization (5 0+ years) (1 of 1 - PCV) 11/22/2009 Zoster Immunization (1 of 2) 11/22/2009 Influenza Immunization (#1) 2024 SARS-COV-2 Immunization ( - season) 2024 Colonoscopy 09/21/2030 09/21/2020 Colorectal Cancer Screening 09/21/2030 Respiratory Syncytial Virus (RSV) Immunization (Adult) (1 - 1-dose 75+ series) 11/22/2034 Hepatitis B Immunization Aged Out No longer eligible based on patient's age to complete this topic Meningococcal Immunization (ACWY) Aged Out No longer eligible based on patient's age to complete this topic Pneumococcal Immunization Combined Aged Out No longer eligible based on patient's age to complete this topic Rotavirus Immunization Aged Out No lo nger eligible based on patient's age to complete this topic Procedures Procedure Name Priority Date/Time Associated Diagnosis Comments COLONOSCOPY Routine 09/21/2020 from Last 3 Months or Most Recently Relevant to Health Maintenance Results * COLONOSCOPY (09/21/2020) Дмитрий Rees DO PROCEDURE/MINOR SURGICAL ORDERA BLES Final Result from Last 3 Months or Most Recently Relevant to Health Maintenance Insurance [facility] Care Teams Diagram Clerk Relationship Specialty Start Date End Date Campos Noel MD PCP - General Family Medicine 08/24/20
[2025-01-19 22:24] LABS: Hematocrit 38.4 % (37.0-47.0); Hemoglobin 12.4 g/dL (12.0-15.0); Mean Corpuscular HGB Conc 32.3 g/dl (32-36); Mean Corpuscular Hemoglobin 30.5 pg (26-34); Mean Corpuscular Volume 94.6 fl (80-100); Platelet Count Result 255 k/mm3 (150-375); Red Blood Count 4.06 M/mm3 (4.2-5.4); White Blood Count 5.6 K/mm3 (4.5-10.0)
[2025-01-19 23:19] LABS: Thyroid Stimulating Hormone Reflex 0.562 uIU/mL (0.465-4.68)
[2025-01-20 09:41] LABS: Alanine Aminotransferase 20 U/L (6-35); Albumin Level 4.0 g/dL (3.5-5.1); Alkaline Phosphatase 54 U/L (38-126); Anion Gap 9 mmol/L (4-12); Aspartate Amino Transferase 28 U/L (14-36); Bilirubin,Total 0.3 mg/dL (0.2-1.3); Blood Urea Nitrogen 14 mg/dL (7-17); Calcium 9.1 mg/dL (8.4-10.2); Carbon Dioxide 25 mmol/L (22-30); Chloride 103 mmol/L (98-107); Cholesterol 218 mg/dL (0-200); Estimated Glomerular Filt Rate > 60; Glucose 47 mg/dL (65-110); HDL Direct 97 mg/dL; Potassium 3.5 mmol/L (3.4-5.0); Sodium 137 mmol/L (137-145); Total Protein 6.6 g/dL (6.3-8.2); Triglycerides 72 mg/dL (<150); Vitamin B12 769.0 pg/mL (239-931)
== END 2025-01-19 13:38 | disposition home or self-care (01) ==
PROVIDERS: PCP Family Medicine Adolescent Medicine; Visit Provider Nurse Practitioner Family
DX: F41.1 Generalized anxiety disorder (principal); I10 Essential (primary) hypertension; R00.0 Tachycardia, unspecified; E78.00 Pure hypercholesterolemia, unspecified; K21.9 Gastro-esophageal reflux disease without esophagitis; G43.909 Migraine, unspecified, not intractable, without status migrainosus; J45.991 Cough variant asthma; Z11.59 Encounter for screening for other viral diseases
CPT/HCPCS: 36415; 80053; 80061; 82607; 84443; 85027; 86803

== ENCOUNTER 2025-02-10 10:55 | Emergency (ER) | payer MEDICARE, SELFPAY ==
--- NOTE | ~2025-02-10 | XR_ITS ---
EXAMINATION: XR finger 5th LT min 2V DATE: 02/10/2025 11:43 INDICATION: Injury to fifth digit. TECHNIQUE: 3 images of the left fifth digit were obtained COMPARISON: None FINDINGS: Mildly displaced fracture of the middle third of the proximal phalanx of the fifth digit with adjacen t soft tissue swelling. No other fracture identified. IMPRESSION: 1. Mildly displaced fracture of the middle third of the proximal phalanx of the fifth digit with joan cent soft tissue swelling. 2. No other fracture identified. Reviewed, dictated and finalized at location A. IMPRESSION: 1. Mildly displaced fracture of the middle third of the proximal phalanx of the fifth digit with adjacent soft tissue swelling. 2. No other fracture identified.
--- OUTSIDE RECORDS SUMMARY | 2025-02-10 11:11 | XMS_ITS | Clinical Summary ---
Author Organization [facility] [address] [facility] Address [address] [place] [phone] Care Team Providers Care Winder Tender Name Role Phone Campos Noel MD Primary Care Prov ider Sahil Houston MD Unavailable [phone] Allergies Active Allergy Reactions Criticality Noted Date [...] unremarkable Assessment & Plan (08/25/2020 11:56 AM FIRST AID DIRECTOR): Initially presented with a positive SB 1:640 [...] Houston. Surgical History Surgery Date Site/Laterality Comments CA TONSILLECTOMY PRIMARY/SEC ONDARY <AGE 11 Tonsillectomy - [...] on file Legal Sex Female 1:16 AM FIRST AID DIRECTOR Gender Identity Not on file Sexual Orientation Not on file Obstetrics History Last Filed Vital Signs Vital Sign Reading Time Taken Comments Blood Pressure 140/88 08/25/2020 10:55 AM FIRST AID DIRECTOR Pulse - - Temperature 36.6 C (97.8 F) 08/25/2020 10:55 AM FIRST AID DIRECTOR Respiratory Rate - - Oxygen Saturation - - Inhaled Oxygen Concentration - - Weight 77.6 kg (171 lb) 08/25/2020 10:55 AM FIRST AID DIRECTOR Height 157.5 cm (5' 2) 08/25/2020 10:55 AM FIRST AID DIRECTOR Body Mass Index 31.28 08/25/2020 10:55 AM FIRST AID DIRECTOR Plan of Treatment Not on file Insurance [employer] Care Teams Winder Tender Relationship Specialty Start Date End Date Campos Noel MD [address] [place] [id number] PCP - General Family Medicine 01/25/20 Sahil Houston [place] [facility] [place] [address] Consulting Physician Rheumatology 01/25/20
--- OUTSIDE RECORDS SUMMARY | 2025-02-10 11:11 | XMS_ITS | Clinical Summary ---
Author Organization [facility] Address [address] [address] Phone Care Team Providers Care Suede Brusher Name Role Phone Campos Noel MD Primary Care Provider + Social History Tobacco Use Types Packs/Day Years Used Date Smoking Tobacco: Never Assessed Comments Unknown Sex and Gender Information Value Date Recorded Sex Assigned at Not on file Legal Sex Female 10:55 AM SIGNAL WIRER Gender Identity Not on file Sexual Orientation Not on file Plan of Treatment Health Maintenance Due Date Last Done Comments Hepatitis C Virus (HCV) Screening 1960 TdaP Immunization 1960 Pap Smear 11/22/1980 Cervical Cancer Screening (CCS) 11/22/1989 HPV/Cotest 11/22/1989 Cologuard 11/22/2004 Immunochemical Fecal Occult Blood 11/22/2004 Pneumococcal Immunization (5 0+ years) (1 of 1 - PCV) 11/22/2009 Zoster Immunization (1 of 2) 11/22/2009 SARS-COV-2 Immunization ( - season) 2024 Influenza Immunization (#1) 2025 Colonoscopy 09/21/2030 09/21/2020 Colorectal Cancer Screening 09/21/2030 Respiratory Syncytial Virus (RSV) Immunization (Adult) (1 - 1-dose 75+ series) 11/22/2034 Hepatitis B Immunization Aged Out No longer eligible based on patient's age to complete this topic Human Papillomavirus (HPV) Immunization Aged Out No longer eligible b ased [...] Most Recently Relevant to Health Maintenance Insurance [facility] Care Teams Suede Brusher Relationship Specialty Start Date End Date Campos Noel MD PCP - General Family Medicine 08/24/20
--- OUTSIDE RECORDS SUMMARY | 2025-02-10 11:11 | XMS_ITS | Clinical Summary ---
Author Organization [facility] Address [address] [place] [address] Care Team Providers Care Fibre Composite Technician Name Role Phone Campos Noel MD Primary Care Provider + Source Comments [facility],non-cass medical center Affiliates and Associated Physician Practices is amultiple site organization consisting of ambulatory clinics and hospital sitesin [place], [place], [place] and [place]. This disclosure is being madepursuant to the Care Everywhere program and may not contain all information available regarding this patient. Last updated 18.[facility] Social History Tobacco Use Types Packs/Day Years Used Date Smoking Tobacco: Never Assessed Comments Unknown Sex and Gender Information Value Date Recorded Sex Assigned at Not on file Legal Sex Female 10:10 AM EPIC PROFESSIONAL Gender Identity Not on file Sexual [...] to complete this topic Insurance [facility] Care Teams Fibre Composite Technician Relationship Specialty Start Date End Date Campos Noel MD [address] [address] PCP - General 09/06/21
--- OUTSIDE RECORDS SUMMARY | 2025-02-10 11:11 | XMS_ITS | Encounter Summary ---
Author Organization [facility] Address [address] [place] [address] Care Team Providers Care Operations Architect Name Role Phone Campos Noel MD Primary Care Provider + Encounter Details Date Type Department Care Team (Late st Contact Info) Description 04/15/2022 Lab Requisition [facility] [address] [place] [address] Urban Munson MD [address] [place] [address] Social History Tobacco Use Types Packs/Day Years Used Date Smoking Tobacco: Never Assessed Comments Unknown Sex and Gender Information Value Date Recorded Sex Assigned at Not on file Legal Sex Female 10:10 AM SEED CONE PICKER Gender Identity Not on file Sexual Orientation Not on file documented as of this encounter Plan of Treatment Not on file documented as of this encounter Procedures Procedure Name Priority Date/Time Associated Diagnosis Comments DERMATOPATHOLOGY Routine 04/15/2022 12:0 0 AM CDT documented in this encounter Results * DERMATOPATHOLOGY (04/15/2022 12:00 AM CDT) Case Report Dermatopathology Report Case: [id number] Authorizing Provider: Urban Munson MD Collected: 04/15/2022 12:00 AM Ordering Location: [facility] Received: 04/15/2022 [...] specimen consists of a shave biopsy measuring [id number] and another piece of tissue measuring [id number]. Jar 0. 1:02 PM CDT DERMATOPATHOLOGY LABORATORY [...] characteristic determined by the Dermatopathology Laboratory at [facility], directed by Dr. Maureen Abraham. These tests need not be, and therefore are not, approved by the [place] Food and Drug Administration. The tests are used for clinical purposes. Billing Codes Specimen Charges Stain Charges 62064 1 74943 1 2 1:02 PM CDT DERMATOPATHOLOGY LABORATORY Embedded Images 1:02 PM CDT DERMATOPATHOLOGY LABORATORY Pathology/Cytolog y TISSUE SPECIMEN FROM SKIN / Unknown 04/15/2022 04/15/2022 3:45 PM CDT us Urban Munson MD LAB - PATHOLOGY/CYTOLOGY ORDERAB LES Final Result DERMATOPATHOLOGY LABORATORY [facility] - Department of Dermatology [facility] [address] [place] [address], [address] [place] [address], [facility] [phone] documented in this encounter Visit Diagnoses Not on filedocumented in this encounter Care Teams Operations Architect Relationship Specialty Start Date End Date Campos Noel MD [address] [address] PCP - General 09/06/21 documented as of this encounter
[2025-02-10 11:14] VITALS: BP 152/78; PULSE 75; RESP 16; TEMP 36.3; O2SAT 99
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
--- OUTSIDE RECORDS SUMMARY | 2025-02-10 12:19 | XMS_ITS | Clinical Summary ---
Author Organization [facility] [address] [facility] Address [address] [place] [address] Care Team Providers Care Photo Lab Technician Name Role Phone Campos Noel MD Primary Care Prov ider Sahil Houston MD Unavailable [phone] Allergies Active Allergy Reactions Criticality Noted Date [...] unremarkable Assessment & Plan (08/25/2020 11:56 AM HARD CANDY SPINNER): Initially presented with a positive SB 1:640 [...] [place]. Surgical History Surgery Date Site/Laterality Comments CO TONSILLECTOMY PRIMARY/SEC ONDARY <AGE 11 Tonsillectomy - [...] on file Legal Sex Female 1:16 AM HARD CANDY SPINNER Gender Identity Not on file Sexual Orientation Not on file Obstetrics History Last Filed Vital Signs Vital Sign Reading Time Taken Comments Blood Pressure 140/88 08/25/2020 10:55 AM HARD CANDY SPINNER Pulse - - Temperature 36.6 C (97.8 F) 08/25/2020 10:55 AM HARD CANDY SPINNER Respiratory Rate - - Oxygen Saturation - - Inhaled Oxygen Concentration - - Weight 77.6 kg (171 lb) 08/25/2020 10:55 AM HARD CANDY SPINNER Height 157.5 cm (5' 2) 08/25/2020 10:55 AM HARD CANDY SPINNER Body Mass Index 31.28 08/25/2020 10:55 AM HARD CANDY SPINNER Plan of Treatment Not on file Insurance [employer] Care Teams Photo Lab Technician Relationship Specialty Start Date End Date Campos Noel MD [address] [place] [id number] PCP - General Family Medicine 01/25/20 Sahil Houston MD [facility] [place] [address] Consulting Physician Rheumatology 01/25/20
--- OUTSIDE RECORDS SUMMARY | 2025-02-10 12:19 | XMS_ITS | Clinical Summary ---
Author Organization [facility] Address [address] [place] [address] Care Team Providers Care Experimental Machinist Name Role Phone Campos Noel MD Primary Care Provider [phone] Jez Aldrich MD Unavailable [phone] Allergies Active Allergy Reactions Criticality Noted Date Comments Codeine Nausea Only 04/15/2018 Hydrochlorothiazide Itching 01/15/2023 Morphine Nausea Only 04/15/2018 Medications carisoprodol 350 MG tablet Take 1 tablet (350 mg total) by mouth as needed. 2 8 Active losartan 100 MG tablet Take 1 tablet (100 mg total) by mouth daily. 9 8 Active SUMAtriptan 100 MG tablet Take 1 tablet (100 mg total) by mouth as needed. 10 8 Active Biotin [address]509 MCG Tab Take 1 tablet by mouth daily. 8 Active ondansetron 8 MG tablet Take 1 tablet (8 mg total) by mouth every 8 (eight) hours as needed for Nausea. 8 Active pantoprazole 40 MG tablet Take 1 tablet (40 mg total) by mouth daily. 2 8 Active senna-docusate 8.6-50 MG tablet Take 1 tablet by mouth daily. 9 Active hydrOXYzine 50 MG tablet Take 1 tablet (50 mg total) by mouth nightly at bedtime. 1 Active traZODone 100 MG tablet Take 1 tablet (100 mg total) by mouth every evening. 1 Active amLODIPine (NORVASC) 5 MG tablet Take 1 tablet (5 mg total) by mouth daily. 3 Active MISC NATURAL PRODUCTS OR Take by mouth daily. Magnalife- leg and back pain refief Active albuterol sulfate HFA 108 (90 Base) MCG/ACT inhalerIndication s:Mild intermittent asthma without complication (HHS/HCC) Inhale 2 puffs into the lungs every 4 (four) hours as needed for Wheezing. 8 g 6 4 Active Active Problems Problem Noted Date Diagnosed Date Arthralgia, unspecified joint 01/12/2020 Fatigue due to excessive exertion, initial encou nter 01/12/2020 Dyspnea 04/02/2018 Hypertension, essential, benign Immunizations Immunization Administration Dates Next Due Zoster (Zostavax) [address] Unt/0.65Ml 02/15/2016 Family History Medical History Relation Comments cad Maternal Grandfather pacemaker Maternal Grandmother Stroke Paternal Grandfather Relation Status Comments Brother Alive Father (Age 76) Maternal Grandfather (Age 72) Maternal Grandmother (Age 86) Mother Alive Paternal Grandfather (Age 86) Paternal Grandmother (Age 91) Sister 1 Alive Sister 2 Alive Social History Tobacco Use Types Packs/Day Years Used Date Smoking Tobacco: Never Smokeless Tobacco: Never Tobacco Cessation:Counseling Given: Yes Alcohol Use Standard Drinks/Week Comments Yes 0 (1 standard drink = 0.6 oz pur e alcohol) SENG/Beer AUDIT-C Answer Date Recorded Frequency of Alcohol Consumption 4 or more times a week 04/15/2018 Average Number of Drinks 1 or 2 018 Frequency of Binge Drinking Not on file 03/30 Exercise Vital Sign Answer Date Recorde d Days of Exercise per Week 4 days 2018 Minutes of Exercise per Session Not on file 01/13/2019 Comments No Sex and Gender Information Value Date Recorded Sex Assigned at Not on file Legal Sex Female 7:08 PM CDT Gender Identity Not on file Sexual Orientation Not on file 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 Not on file Not on file Not on file Last Filed Vital Signs Vital Sign Reading Time Taken Comments Blood Pressure 130/84 02/04/2024 8:42 AM CDT Pulse 59 02/04/2024 8:42 AM CDT Temperature 36.7 C (98 F) 04/16/2018 9:12 AM CDT Respiratory Rate 16 12/29/2023 8:10 AM CDT Oxygen Saturation 98% 02/04/2024 8:42 AM CDT Inhaled Oxygen Concentration - - Weight 64.9 kg (143 lb) 02/04/2024 8:42 AM CDT Height 157.5 cm (5' 2) 02/04/2024 8:42 AM CDT Body Mass Index 26.16 02/04/2024 8:42 AM CDT Plan of Treatment Upcoming Encounters Date Type Department Care Team (Late st Contact Info) Description 02/16/2025 8:45 AM CDT [facility] [address] [place] [address] Jez Aldrich MD [facility]. [address] [address] Health Maintenance Due Date Last Done Comments Colorectal Cancer Screening Colonoscopy (10 Years) 1960 Hepatitis C 11/22/1977 DTaP, Tdap and Td Vaccines ( 1 - Tdap) 11/22/1978 Mammogram Screening 1999 Pneumococcal Vaccine: 50+ Ye ars (1 of 1 - PCV) 11/22/2009 Zoster Vaccines (2 of 3) 04/11/2016 02/15/2016 COVID-19 Vaccine (1 - 2023-2 5 season) 2024 PHQ-2 (Physician [place]) 06/30/2024 Dexa Scan (General) 11/22/2024 RSV Immunization or 60+ Years (1 - 1-dose 75+ series) 11/22/2034 Meningococcal B Vaccine Aged Out No l onger eligible based on patient's age to complete this topic Meningococcal Vaccine Aged Out No carmen jeferson eligible based on patient's age to complete this topic RSV Immunizations Under 20 Months Aged Out No longer eligible based on patient's age to complete this topic Insurance [facility] Advance Directives * Full Code (Latest Code Status on File) Date Activated Date Inactivated Comments 04/16/2018 1:02 PM 04/16/2018 5:59 PM Care Teams Experimental Machinist Relationship Specialty Start Date End Date Campos Noel MD [address] [place] [address] [address] [place] [address] PCP - General FAMILY PRACTICE 03/26/18 Jez Aldrich MD [facility] [address] [place] [address] [place] Biomedical Equipment Technician CARDIOVASCULAR DISEASE 04/07/18
--- OUTSIDE RECORDS SUMMARY | 2025-02-10 12:19 | XMS_ITS | Encounter Summary ---
Author Organization [facility] Address [address] [place] [address] Care Team Providers Care Cylinder Dyer Name Role Phone Campos Noel MD Primary Care Provider [phone] Jez Aldrich MD Unavailable [phone] Encounter Details Date Type Department Care Team (Late st Contact Info) Description 04/17/2018 Abstract [facility] [place] [address] [place] [address] Boo Mark MA Social History Tobacco Use Types Packs/Day Years Used Date Smoking Tobacco: Never Smokeless Tobacco: Never Alcohol Use Standard Drinks/Week Comments Yes 0 (1 standard drink = 0.6 oz pur e alcohol) SENG/Beer AUDIT-C Answer Date Recorded Frequency of Alcohol Consumption 4 or more times a week 04/15/2018 Average Number of Drinks 1 or 2 018 Frequency of Binge Drinking Not on file 03/30 Comments No Sex and Gender Information Value Date Recorded Sex Assigned at Not on file Legal Sex Female 7:08 PM CDT Gender Identity Not on file Sexual Orientation Not on file documented as of this encounter Plan of Treatment Upcoming Encounters Date Type Department Care Team (Late st Contact Info) Description 02/16/2025 8:45 AM CDT [facility] [address] [place] [phone] Jez Aldrich MD [address] [address] documented as of this encounter Procedures Procedure Name Priority Date/Time Associated Diagnosis Comments COMPREHENSIVE METABOLIC PANEL Routine 10/08/2022 LIPID PANEL Routine 10/08/2022 MAGNESIUM Routine 10/08/2022 COMPREHENSIVE METABOLIC PANEL Routine 03/23/2018 HEMOGLOBIN Routine 03/23/2018 THYROID STIM HORMONE TSH Routine 03/23/2018 documented in this encounter Results * COMPREHENSIVE METABOLIC PANEL (10/08/2022) Pathologist [facility] SODIUM S/P/B 132 GLUCOSE 92 mg/dL AST 21 BUN 19 CREATININE S/P/B 0.80 0.5 - 1.0 CALCIUM S/P/B 9.1 POTASSIUM S/P/B 4.2 CHLORIDE S/P/B 100 ALT 17 GFR ESTIMATE >60 Narrative Resulting Agency Comment us Default History Genericprovider LABORATORY Final Result * LIPID PANEL (10/08/2022) Pathologist [facility] CHOLESTEROL 259 TRIGLYCERIDES 43 HDL 101 LDL (CALCULATED) 117 Narrative Resulting Agency Comment us Default History Genericprovider LABORATORY Final Result * MAGNESIUM (10/08/2022) Pathologist [facility] MAGNESIUM 1.7 Narrative Resulting Agency Comment us Default History Genericprovider LABORATORY Final Result * Hemoglobin (03/23/2018) Pathologist [facility] HGB 12.6 03/23/2018 Doc [facility] Abstract LABORATORY Final Result * THYROID STIM HORMONE, TSH (03/23/2018) Pathologist [facility] TSH 0.933 03/23/2018 us Doc [facility] LABORATORY Final Result * COMPREHENSIVE METABOLIC PANEL (03/23/2018) SODIUM S/P/B 140 POTASSIUM S/P/B 4.9 CO2 23 CHLORIDE S/P/B 101 GLUCOSE 95 mg/dL CALCIUM S/P/B 9.6 BUN 15 CREATININE S/P/B 0.93 0.5 - 1.0 EGFR AFR. AMER. 78 <=90 EGFR NON-AFR. AMER. 68 <=90 ALKALINE PHOSPHATASE S/P/B 75 ALT 14 AST 14 BILIRUBIN TOTAL S/P/B 0.3 ALBUMIN S/P/B 4.4 3.5 - 5.0 TOTAL PROTEIN S/P/B 6.9 GLOBULIN 2.5 03/23/2018 us Doc [facility] Abstract LABORATORY Edited Resul t - Final documented in this encounter Visit Diagnoses Not on filedocumented in this encounter Care Teams Cylinder Dyer Relationship Specialty Start Date End Date Campos Noel MD [address] [facility] [address] [place] [address] PCP - General FAMILY PRACTICE 03/26/18 Jez Aldrich MD [address] [facility]. [address] [place] [address] [place] CARDIOVASCULAR DISEASE 04/07/18 documented as of this encounter
--- OUTSIDE RECORDS SUMMARY | 2025-02-10 12:19 | XMS_ITS | Encounter Summary ---
Author Organization [facility] Health Address [address] [place] [address] Care Team Providers Care Epic Willow Specialist Name Role Phone Campos Noel MD Primary Care Provider + Encounter Details Date Type Department Care Team (Late st Contact Info) Description 04/15/2022 Lab Requisition [facility] DermPath Lab [address] [facility] [place] [address] Urban Munson MD [address] [place] [address] Social History Tobacco Use Types Packs/Day Years Used Date Smoking Tobacco: Never Assessed Comments Unknown Sex and Gender Information Value Date Recorded Sex Assigned at Not on file Legal Sex Female 10:10 AM BOOK CUTTER Gender Identity Not on file Sexual Orientation Not on file documented as of this encounter Plan of Treatment Not on file documented as of this encounter Procedures Procedure Name Priority Date/Time Associated Diagnosis Comments DERMATOPATHOLOGY Routine 04/15/2022 12:0 0 AM CDT documented in this encounter Results * DERMATOPATHOLOGY (04/15/2022 12:00 AM CDT) Case Report Dermatopathology Report Case: [id number] Authorizing Provider: Urban Munson MD Collected: 04/15/2022 12:00 AM Ordering Location: [facility] D[facility] Lab Received: 04/15/2022 03:45 PM Pathologist: [...] specimen consists of a shave biopsy measuring [id number] and another piece of tissue measuring 5w2d5ig. Jar 0. 1:02 PM CDT DERMATOPATHOLOGY LABORATORY [...] characteristic determined by the Dermatopathology Laboratory at [facility], directed by Dr. Maureen Abraham. These tests need not be, and therefore are not, approved by the [place] Food and Drug Administration. The tests are used for clinical purposes. Billing Codes Specimen Charges Stain Charges 91038 1 82785 1 2 1:02 PM CDT DERMATOPATHOLOGY LABORATORY Embedded Images 1:02 PM CDT DERMATOPATHOLOGY LABORATORY Pathology/Cytolog y TISSUE SPECIMEN FROM SKIN / Unknown 04/15/2022 04/15/2022 3:45 PM CDT us Urban Munson MD LAB - PATHOLOGY/CYTOLOGY ORDERAB LES Final Result DERMATOPATHOLOGY LABORATORY [facility] - Department of Dermatology [facility] Specialized Medicine [address] [place] [address], [address] [place] [address], [facility] [phone] documented in this encounter Visit Diagnoses Not on filedocumented in this encounter Care Teams Epic Willow Specialist Relationship Specialty Start Date End Date Campos Noel MD [address] [address] PCP - General 09/06/21 documented as of this encounter
--- OUTSIDE RECORDS SUMMARY | 2025-02-10 12:19 | XMS_ITS | Clinical Summary ---
Author Organization [facility] Address [address] [address] Phone Care Team Providers Care Warp Picker Name Role Phone Campos Noel MD Primary Care Provider + Social History Tobacco Use Types Packs/Day Years Used Date Smoking Tobacco: Never Assessed Comments Unknown Sex and Gender Information Value Date Recorded Sex Assigned at Not on file Legal Sex Female 10:55 AM COP BREAKER Gender Identity Not on file Sexual Orientation [...] Most Recently Relevant to Health Maintenance Insurance [facility] Care Teams Warp Picker Relationship Specialty Start Date End Date Campos Noel MD PCP - General Family Medicine 08/24/20
--- OUTSIDE RECORDS SUMMARY | 2025-02-10 12:19 | XMS_ITS | Encounter Summary ---
Author Organization [facility] Address [address] [place] [address] Care Team Providers Care Escrow Clerk Name Role Phone Campos Noel MD Primary Care Provider +1- [phone] Jez Aldrich MD Unavailable [phone] Encounter Details Date Type Department Care Team (Late Contact Info) Description 04/16/2018 Hospital Orders Only [facility], [facility] at [address] [phone] Jez Aldrich MD [address] [phone] Social History Tobacco Use Types Packs/Day Years [...] Encounters Date Type Department Care Team (Late Contact Info) Description 02/16/2025 8:45 AM CDT [facility] [address] [place] [address] Jez Aldrich MD Three [facility]. [facility] [address] [place] [address] documented as of this encounter Visit Diagnoses Diagnosis Abnormal stress echocardiogram- Primary Other nonspecific abnormal cardiovascular system function study Mixed hyperlipidemia- Primary Essential (primary) hypertension Unspecified essential hypertension documented in this encounter Care Teams Escrow Clerk Relationship Specialty Start Date End Date Campos Noel MD [address] [address] PCP - General FAMILY PRACTICE 03/26/18 Jez Aldrich MD [address] [facility]. [facility] [address] [place] [address] Franchesca Template Worker CARDIOVASCULAR DISEASE 04/07/18 documented as of this encounter
--- OUTSIDE RECORDS SUMMARY | 2025-02-10 12:19 | XMS_ITS | Clinical Summary ---
Author Organization [facility] Address [address] [place] [address] Care Team Providers Care Medicaid Service Coordinator Name Role Phone Campos Noel MD Primary Care Provider + Source Comments [facility],non-[facility] Affiliates and Associated Physician Practices is amultiple site organization consisting of ambulatory clinics and hospital sitesin [place], [place], [place] and [place]. This disclosure is being madepursuant to the Care Everywhere program and may not contain all information available regarding this patient. 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
[2025-02-10] MEDS: ONDANSETRON HCL ODT 4 MG TABLET PO (12:21)
[2025-02-10] MEDS: oxyCODONE HCL (*CRX) 5 MG TAB IR PO (12:22)
[2025-02-10] MEDS: IBUPROFEN 400 MG TABLET 800 MG PO (12:22)
[2025-02-10] MEDS: ACETAMINOPHEN 500 MG TABLET 1000 MG PO (12:23)
== END 2025-02-10 12:32 | disposition home or self-care (01) ==
PROVIDERS: Emergency Provider Emergency Medicine; PCP Family Medicine Adolescent Medicine
DX: S62.617A Displaced fracture of proximal phalanx of left little finger, initial encounter for closed fracture (principal); I10 Essential (primary) hypertension; K21.9 Gastro-esophageal reflux disease without esophagitis; N80.9 Endometriosis, unspecified; F41.1 Generalized anxiety disorder; Z79.899 Other long term (current) drug therapy; Y93.55 Activity, bike riding; V18.4XXA Pedal cycle driver injured in noncollision transport accident in traffic accident, initial encounter
CPT/HCPCS: 29130; 73140; 99284; A9270

== ENCOUNTER 2025-03-01 10:11 | Outpatient (CLI) | payer MEDICARE, SELFPAY ==
--- NOTE | ~2025-03-01 | XR_ITS ---
EXAM/ PROCEDURE: XR finger 5th LT min 2V - 03/01/2025 10:25 CDT HISTORY: 64 years old Female with S62.647A - Nondisplaced fracture of proximal phalanx of l... COMPARISON: 02/10/2025 TECHNIQUE: Three view(s) FINDINGS/ IMPRESSION: Healing fracture of the proximal fifth phalanx with medial angulation. Unchanged alignment. Soft tissue appears unremarkable. Joint space narrowing, subchondral sclerosis, subchondral cyst formation and osteophyte formation, compatible with mild osteoarthritis. Reviewed, dictated and finalized at location N.
--- OUTSIDE RECORDS SUMMARY | 2025-03-01 10:41 | XMS_ITS | Encounter Summary ---
Author Organization [facility] Health Address [address] [facility] [place] [address] Care Team Providers Care Daycare Assistant Name Role Phone Campos Noel MD Primary Care Provider + Encounter Details Date Type Department Care Team (Late st Contact Info) Description 04/15/2022 Lab Requisition [facility] DermPath Lab [address] [facility] [place] [address] Urban Munson MD [address] [place] [address] Social History Tobacco Use Types Packs/Day Years Used Date Smoking Tobacco: Never Assessed Comments Unknown Sex and Gender Information Value Date Recorded Sex Assigned at Not on file 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 Gender Identity Not on file Sexual Orientation Not on file documented as of this encounter Plan of Treatment Not on file documented as of this encounter Procedures Procedure Name Priority Date/Time Associated Diagnosis Comments DERMATOPATHOLOGY Routine 04/15/2022 12:0 0 AM CDT documented in this encounter Results * DERMATOPATHOLOGY (04/15/2022 12:00 AM CDT) Case Report Dermatopathology Report Case: [id number] Authorizing Provider: Urban Munson MD Collected: 04/15/2022 12:00 AM Ordering Location: [facility] DermPath Lab Received: 04/15/2022 03:45 PM Pathologist: Sanjuanita Kurtz MD Specimen: Skin, lower back 1:02 PM CDT DERMATOPATHOLOGY LABORATORY Final Diagnosis Specimen A. SKIN, lower back: SUPERFICIAL PERIVASCULAR LYMPHOCYTIC INFILTRATE WITH EOSINOPHILS AND NEUTROPHILS (L27.0) (see microscopic description and comment) 1:02 PM CDT DERMATOPATHOLOGY LABORATORY at 1302 CDT Clinical History R/O Chester's, Eczema, Drug Eruption, Derm 1:02 PM CDT DERMATOPATHOLOGY LABORATORY Gross Description Specimen A: Received is one formalin filled container labeled with the patient's name and designated lower back. The specimen consists of a shave biopsy measuring 9t2q7yn and another piece of tissue measuring 4o0f3oh. Jar 0. 1:02 PM CDT DERMATOPATHOLOGY LABORATORY [...] characteristic determined by the Dermatopathology Laboratory at [facility], directed by Dr. Maureen Abraham. These tests need not be, and therefore are not, approved by the [place] Food and Drug Administration. The tests are used for clinical purposes. Billing Codes Specimen Charges Stain Charges 41523 1 74261 1 2 1:02 PM CDT DERMATOPATHOLOGY LABORATORY Embedded Images 1:02 PM CDT DERMATOPATHOLOGY LABORATORY Pathology/Cytolog y TISSUE SPECIMEN FROM SKIN / Unknown 04/15/2022 04/15/2022 3:45 PM CDT us Urban Munson MD LAB - PATHOLOGY/CYTOLOGY ORDERAB LES Final Result DERMATOPATHOLOGY LABORATORY [facility] - Department of Dermatology [facility] Specialized Medicine [address] [place] [address], 3rd [place] [address], [facility] [phone] documented in this encounter Visit Diagnoses Not on filedocumented in this encounter Care Teams Daycare Assistant Relationship Specialty Start Date End Date Campos Noel MD [address] [address] PCP - General 09/06/21 documented as of this encounter
--- OUTSIDE RECORDS SUMMARY | 2025-03-01 10:41 | XMS_ITS | Clinical Summary ---
Author Organization [facility] Address [address] [place] [address] Care Team Providers Care Roll Forming Machine Set Up Operator Name Role Phone Campos Noel MD Primary Care Provider + Source Comments [facility],non[facility] Affiliates and Associated Physician Practices is amultiple site organization consisting of ambulatory clinics and hospital sitesin [place], [place], [place] and [place]. This disclosure is being madepursuant to the Care Everywhere program and may not contain all information available regarding this patient. 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
--- OUTSIDE RECORDS SUMMARY | 2025-03-01 10:41 | XMS_ITS | Encounter Summary ---
Author Organization [facility] Address [address] [place] [address] Care Team Providers Care Inside Plant Supervisor Name Role Phone Campos Noel MD Primary Care Provider [phone]- [phone] Jez Aldrich MD Unavailable [phone] Encounter Details Date Type Department Care Team (Late st Contact Info) Description 04/17/2018 [facility] at [address] [address] Boo Mark [place] Social History Tobacco Use [...] Care Team (Late st Contact Info) Description 03/01/2026 9:00 AM CDT [facility] [address] [place] [place] [phone] Pamela Jeffries, CORN HUSKER[facility] [address] [address] documented as of this encounter Procedures Procedure Name Priority Date/Time Associated Diagnosis Comments COMPREHENSIVE METABOLIC PANEL Routine 10/08/2022 LIPID PANEL Routine 10/08/2022 MAGNESIUM Routine 10/08/2022 COMPREHENSIVE METABOLIC PANEL Routine 03/23/2018 HEMOGLOBIN Routine 03/23/2018 THYROID STIM HORMONE TSH Routine 03/23/2018 documented in this encounter Results * COMPREHENSIVE METABOLIC PANEL (10/08/2022) Pathologist [facility] SODIUM S/P/B 132 GLUCOSE 92 mg/dL AST 21 BUN 19 CREATININE S/P/B 0.80 0.5 - 1.0 CALCIUM S/P/B 9.1 POTASSIUM S/P/B 4.2 CHLORIDE S/P/B 100 ALT 17 GFR ESTIMATE >60 Narrative Resulting Agency Comment us Default History Genericprovider LABORATORY Final Result * LIPID PANEL (10/08/2022) Pathologist [facility] CHOLESTEROL 259 TRIGLYCERIDES 43 HDL 101 LDL (CALCULATED) 117 Narrative Resulting Agency Comment us Default History Genericprovider LABORATORY Final Result * MAGNESIUM (10/08/2022) Pathologist [facility] MAGNESIUM 1.7 Narrative Resulting Agency Comment us Default History Genericprovider LABORATORY Final Result * Hemoglobin (03/23/2018) Pathologist [facility] HGB 12.6 03/23/2018 us Doc [facility] Abstract LABORATORY Final Result * THYROID STIM HORMONE, TSH (03/23/2018) Pathologist [facility] TSH 0.933 03/23/2018 us Doc [facility] Abstract [...] on filedocumented in this encounter Care Teams Inside Plant Supervisor Relationship Specialty Start Date End Date Campos Noel MD [address] [facility] [address] [place] [address] PCP - General FAMILY PRACTICE 03/26/18 Jez Aldrich MD Three [facility]. [facility] [address] [place] [address] Britton Generator Mechanic CARDIOVASCULAR DISEASE 04/07/18 documented as of this encounter
--- OUTSIDE RECORDS SUMMARY | 2025-03-01 10:41 | XMS_ITS | Clinical Summary ---
Author Organization [facility] Address [address] [address] Phone Care Team Providers Care Powder Mill Operator Name Role Phone Campos Noel MD Primary Care Provider + Social History Tobacco Use Types Packs/Day Years Used Date Smoking Tobacco: Never Assessed Comments Unknown Sex and Gender Information Value Date Recorded Sex Assigned at Not on file Legal Sex Female 10:55 AM MILK OF LIME SLAKER Gender Identity Not on file Sexual Orientation [...] Most Recently Relevant to Health Maintenance Insurance [facility] Care Teams Powder Mill Operator Relationship Specialty Start Date End Date Campos Noel MD PCP - General Family Medicine 08/24/20
--- OUTSIDE RECORDS SUMMARY | 2025-03-01 10:41 | XMS_ITS | Clinical Summary ---
Author Organization [facility] [address] [facility] Address [address] [place] [address] Care Team Providers Care Chrome Tanner Name Role Phone Campos Noel MD Primary Care Prov ider Sahil Houston MD Unavailable [phone] Allergies Active Allergy Reactions Criticality Noted Date [...] unremarkable Assessment & Plan (08/25/2020 11:56 AM LINER MACHINE OPERATOR HELPER): Initially presented with a positive SB 1:640 [...] [place]. Surgical History Surgery Date Site/Laterality Comments HI TONSILLECTOMY PRIMARY/SEC ONDARY <AGE 11 Tonsillectomy - [...] on file Legal Sex Female 1:16 AM LINER MACHINE OPERATOR HELPER Gender Identity Not on file Sexual Orientation Not on file Obstetrics History Last Filed Vital Signs Vital Sign Reading Time Taken Comments Blood Pressure 140/88 08/25/2020 10:55 AM LINER MACHINE OPERATOR HELPER Pulse - - Temperature 36.6 C (97.8 F) 08/25/2020 10:55 AM LINER MACHINE OPERATOR HELPER Respiratory Rate - - Oxygen Saturation - - Inhaled Oxygen Concentration - - Weight 77.6 kg (171 lb) 08/25/2020 10:55 AM LINER MACHINE OPERATOR HELPER Height 157.5 cm (5' 2) 08/25/2020 10:55 AM LINER MACHINE OPERATOR HELPER Body Mass Index 31.28 08/25/2020 10:55 AM LINER MACHINE OPERATOR HELPER Plan of Treatment Not on file Insurance [employer] Care Teams Chrome Tanner Relationship Specialty Start Date End Date Campos Noel MD PCP - General Family Medicine 01/25/20 Sahil [place] MD [address] [place] [address] Consulting Physician Rheumatology 01/25/20
--- OUTSIDE RECORDS SUMMARY | 2025-03-01 10:41 | XMS_ITS | Encounter Summary ---
Author Organization [facility] Address [address] [place] [address] Care Team Providers Care Baby Registry Sales Consultant Name Role Phone Campos Noel MD Primary Care Provider [phone]- [phone] Jez Aldrich MD Unavailable [phone] Encounter Details Date Type Department Care Team (Late Contact Info) Description 04/16/2018 Hospital Orders Only [facility], [facility] at [address] [phone] Jez Aldrich MD [address] [id number] Social History Tobacco Use Types Packs/Day Years [...] Department Care Team (Late Contact Info) Description 03/01/2026 9:00 AM CDT [facility] [address] [place] [address] Pamela Jeffries, CINETECHNICIAN-C [facility]. [facility] [address] [place] [address] documented as of this encounter Visit Diagnoses Diagnosis Abnormal stress echocardiogram- Primary Other nonspecific abnormal cardiovascular system function study documented in this encounter Care Teams Baby Registry Sales Consultant Relationship Specialty Start Date End Date Campos Noel MD [address] [facility] [address] [place] [address] PCP - General FAMILY PRACTICE 03/26/18 Jez Aldrich MD [facility]. [facility] [address] [place] [address] Franchesca Barrel Loader And Cleaner CARDIOVASCULAR DISEASE 04/07/18 documented as of this encounter
--- OUTSIDE RECORDS SUMMARY | 2025-03-01 10:41 | XMS_ITS | Clinical Summary ---
Author Organization [facility] Address [address] [place] [address] Care Team Providers Care Warper Creeler Name Role Phone Campos Noel MD Primary Care Provider [phone] Jez Aldrich MD Unavailable [phone] Allergies Active Allergy Reactions Criticality Noted [...] mouth as needed. 10 8 Active Biotin 39475 MCG Tab Take 1 tablet by mouth daily. 8 Active ondansetron 8 MG tablet Take 1 tablet (8 mg total) by mouth every 8 (eight) hours as needed for Nausea. 8 Active pantoprazole 40 MG tablet Take 1 tablet (40 mg total) by mouth daily. 2 8 Active senna-docusate 8.6-50 MG tablet Take 1 tablet by mouth daily. 9 Active traZODone 100 MG tablet Take 1 [...] for Wheezing. 8 g 6 4 Active hydrOXYzine (ATARAX) 25 MG tablet Take 1 tablet (25 mg total) by mouth every morning. 5 Active hydrOXYzine 50 MG tablet Take 1 tablet (50 mg total) by mouth nightly at bedtime. 1 02/17/20 25 Discontinu ed(Dose adjustment ) Active Problems Problem Noted Date Diagnosed Date Arthralgia, unspecified joint 01/12/2020 Fatigue due to excessive exertion, initial encou nter 01/12/2020 Dyspnea 04/02/2018 Hypertension, essential, benign Encounters Date Type Department Care Team Description 02/16/2025 8:45 AM CDT [facility] [address] [place] [phone] Jez Aldrich MD Hypertension; Lipids; Shortness Of Breath 02/16/2025 Travel from Last 3 Months Immunizations Immunization Administration Dates Next Due Zoster (Zostavax) [address]20 Unt/0.65Ml 02/15/2016 Family History Medical History Relation [...] Sign Reading Time Taken Comments Blood Pressure 126/70 02/16/2025 8:41 AM CDT Pulse 65 02/16/2025 8:41 AM CDT Temperature 36.7 C (98 F) 04/16/2018 9:12 AM CDT Respiratory Rate 16 12/29/2023 8:10 AM CDT Oxygen Saturation 98% 02/04/2024 8:42 AM CDT Inhaled Oxygen Concentration - - Weight 71.2 kg (157 lb) 02/16/2025 8:41 AM CDT Height 157.5 cm (5' 2) 02/16/2025 8:41 AM CDT Body Mass Index 28.72 02/16/2025 8:41 AM CDT Plan of Treatment Upcoming Encounters Date Type Department Care Team (Late st Contact Info) Description 03/01/2026 9:00 AM CDT [facility] [address] [place] [phone] Pamela Jeffries, BALLAST REGULATOR OPERATOR-C [facility]. [address] [address] Health Maintenance Due Date Last Done Comments Colorectal Cancer Screening Colonoscopy (10 Years) 1959 Hepatitis C 11/22/1977 Mammogram Screening 1999 DTaP, Tdap and Td Vaccines ( 1 - Tdap) 01/31/2015 01/30/2015 Pneumococcal Vaccine: 50+ Years (2 of 2 - PPSV23) 02/15/2017 02/16/2016 COVID-19 Vaccine (3 - 2023-2 5 season) 2024 11/14/2021, 10/24/2021 PHQ-2 (Physician [place]) 06/30/2024 Dexa Scan (General) 11/22/2024 RSV Immunization or 60+ Years (1 - 1-dose 75+ series) 11/22/2034 Zoster Vaccines Completed 06/02/2023, 01/10/2023, 02/15/2016 Meningococcal B Vaccine Aged Out No l onger eligible based on patient's age to complete this topic Meningococcal Vaccine Aged Out No carmen jeferson eligible based on patient's age to complete this topic RSV Immunizations Under 20 Months Aged Out No longer eligible b ased on patient's age to complete this topic Insurance [facility] Advance Directives * Full Code (Latest Code Status on File) Date Activated Date Inactivated Comments 04/16/2018 1:02 PM 04/16/2018 5:59 PM Care Teams Warper Creeler Relationship Specialty Start Date End Date Campos Noel MD 1 [facility] [address] [place] [address] PCP - General FAMILY PRACTICE 03/26/18 Jez Aldrich MD [facility] [address] [place] [address] Franchesca Supervisor Asphalt Paving CARDIOVASCULAR DISEASE 04/07/18
== END 2025-03-01 10:12 | disposition home or self-care (01) ==
PROVIDERS: PCP Family Medicine Adolescent Medicine; Visit Provider Plastic Surgery
DX: S62.647A Nondisplaced fracture of proximal phalanx of left little finger, initial encounter for closed fracture (principal); X58.XXXA Exposure to other specified factors, initial encounter
CPT/HCPCS: 73140

== ENCOUNTER 2025-03-22 09:26 | Outpatient (CLI) | payer MEDICARE, SELFPAY ==
--- NOTE | ~2025-03-22 | XR_ITS ---
X-rays left fifth finger Indication: Fracture, S62.647A Comparison: 03/01/2025 Technique: 3 views left fifth finger Findings/Impression: 1. Slight further interval healing of angulated fracture fifth finger, proximal phalanx. 2. No other acute findings or significant change. Reviewed, dictated and finalized at location R.
--- OUTSIDE RECORDS SUMMARY | 2025-03-22 10:08 | XMS_ITS | Clinical Summary ---
Author Organization [facility] [address] [facility] Address [address] [place] [address] Care Team Providers Care Electronic Assembler Group Leader Name Role Phone Campos Noel MD Primary Care Prov ider Sahil Houston MD Unavailable [phone] Allergies Active Allergy Reactions Criticality Noted Date [...] unremarkable Assessment & Plan (08/25/2020 11:56 AM AUTO BODY MECHANIC): Initially presented with a positive SB 1:640 [...] [place]. Surgical History Surgery Date Site/Laterality Comments MI TONSILLECTOMY PRIMARY/SEC ONDARY <AGE 11 Tonsillectomy - [...] on file Legal Sex Female 1:16 AM AUTO BODY MECHANIC Gender Identity Not on file Sexual Orientation Not on file Obstetrics History Last Filed Vital Signs Vital Sign Reading Time Taken Comments Blood Pressure 140/88 08/25/2020 10:55 AM AUTO BODY MECHANIC Pulse - - Temperature 36.6 C (97.8 F) 08/25/2020 10:55 AM AUTO BODY MECHANIC Respiratory Rate - - Oxygen Saturation - - Inhaled Oxygen Concentration - - Weight 77.6 kg (171 lb) 08/25/2020 10:55 AM AUTO BODY MECHANIC Height 157.5 cm (5' 2) 08/25/2020 10:55 AM AUTO BODY MECHANIC Body Mass Index 31.28 08/25/2020 10:55 AM AUTO BODY MECHANIC Plan of Treatment Not on file Insurance [employer] Care Teams Electronic Assembler Group Leader Relationship Specialty Start Date End Date Campos Noel MD PCP - General Family Medicine 01/25/20 Sahil Houston MD [address] [place] [address] Consulting Physician Rheumatology 01/25/20
--- OUTSIDE RECORDS SUMMARY | 2025-03-22 10:08 | XMS_ITS | Clinical Summary ---
Author Organization [facility] Address [address] [place] [address] Care Team Providers Care Photograph Enlarger Name Role Phone Campos Noel MD Primary Care Provider + Source Comments [facility],non-[facility] Affiliates and Associated Physician Practices is amultiple site organization consisting of ambulatory clinics and hospital sitesin [place], [place], [place] and [place]. This disclosure is being madepursuant to the Care Everywhere program and may not contain all information available regarding this patient. Last updated 18.[facility] Social History Tobacco Use Types Packs/Day Years Used Date Smoking Tobacco: Never Assessed Comments Unknown Sex and Gender Information Value Date Recorded Sex Assigned at Not on file Legal Sex Female 10:10 AM CUSTOMS VERIFIER Gender Identity Not on file Sexual Orientation [...] 11/22/2009 ZOSTER VACCINE (1 of 2) 11/22/2009 DEPRESSION SCREENING 06/30/2024 COVID-19 VACCINE (1 - 2023-2 5 season) 2025 INFLUENZA VACCINE (#1) 2025 Respiratory Syncytial Virus [...] patient's age to complete this topic Insurance [facility] Care Teams Photograph Enlarger Relationship Specialty Start Date End Date Campos Noel MD [address] [address] PCP - General 09/06/21
--- OUTSIDE RECORDS SUMMARY | 2025-03-22 10:08 | XMS_ITS | Clinical Summary ---
Author Organization [facility] Address [address] [place] [address] Care Team Providers Care Tar Chaser Name Role Phone Campos Noel MD Primary Care Provider [phone] Jez Aldrich MD Unavailable [phone] Allergies Active Allergy Reactions Criticality Noted Date Comments Codeine Nausea Only 04/15/2018 Hydrochlorothiazide Itching 01/15/2023 Morphine Nausea Only 04/15/2018 Medications carisoprodol 350 MG tablet Take 1 tablet (350 mg total) by mouth as needed. 2 03/28/2018 Active losartan 100 MG tablet Take 1 tablet (100 mg total) by mouth daily. 9 04/05/2018 Active SUMAtriptan 100 MG tablet Take 1 tablet (100 mg total) by mouth as needed. 10 03/28/2018 Active Biotin 29958 MCG Tab Take 1 tablet by mouth daily. 04/15/2018 Active ondansetron 8 MG tablet Take 1 tablet (8 mg total) by mouth every 8 (eight) hours as needed for Nausea. 04/15/2018 Active pantoprazole 40 MG tablet Take 1 tablet (40 mg total) by mouth daily. 2 06/29/2018 Active senna-docusate 8.6-50 MG tablet Take 1 tablet by mouth daily. 01/13/2019 Active traZODone 100 MG tablet Take 1 tablet (100 mg total) by mouth every evening. 01/14/2021 Active amLODIPine (NORVASC) 5 MG tablet Take 1 tablet (5 mg total) by mouth daily. 01/07/2023 Active MISC NATURAL PRODUCTS OR Take by mouth daily. Magnalife- leg and back pain refief Active albuterol sulfate HFA 108 (90 Base) MCG/ACT inhalerIndication s:Mild intermittent asthma without complication (HHS/HCC) Inhale 2 puffs into the lungs every 4 (four) hours as needed for Wheezing. 8 g 6 12/29/2023 Active hydrOXYzine (ATARAX) 25 MG tablet Take 1 tablet (25 mg total) by mouth every morning. 01/31/2025 Active Active Problems Problem Noted Date Diagnosed Date Arthralgia, unspecified joint 01/12/2020 Fatigue due to excessive exertion, initial encou nter 01/12/2020 Dyspnea 04/02/2018 Hypertension, essential, benign Encounters Date Type Department Care Team Description 02/16/2025 8:45 AM CDT Office Visit [facility] [address] [place] [phone] Jez Aldrich MD Hypertension; Lipids; Shortness Of Breath 02/16/2025 Travel from Last 3 Months Immunizations Immunization Administration Dates Next Due Zoster (Zostavax) [address]168 Unt/0.65Ml 02/15/2016 Family History Medical History Relation [...] Description 03/01/2026 9:00 AM CDT [facility] [address] [place] [phone] Pamela Jeffries, LEVERMAN-C [address] [address] Health Maintenance Due Date Last Done Comments Colorectal Cancer Screening Colonoscopy (10 Years) 1959 Hepatitis C 11/22/1977 Mammogram Screening 1999 DTaP, Tdap and Td Vaccines ( 1 - Tdap) 01/31/2015 01/30/2015 Pneumococcal Vaccine: 50+ Years (2 of 2 - PPSV23) 04/12/2016 02/16/2016 RSV Immunization or 60+ Years (1 - Risk 60-74 years 1-dose series) 2019 PHQ-2 (Physician Torres Martinez) 06/30/2024 Dexa Scan (General) 11/22/2024 COVID-19 Vaccine (3 - 2024-2 6 season) 2025 11/14/2021, 10/24/2021 Zoster Vaccines Completed 06/02/2023, 01/10/2023, 02/15/2016 Meningococcal B Vaccine Aged Out No l onger eligible based on patient's age to complete this topic Meningococcal Vaccine Aged Out No carmen jeferson eligible based on patient's age to complete this topic RSV Immunizations Under 20 Months Aged Out No longer eligible b ased on patient's age to complete this topic Insurance [facility] Advance Directives * Full Code (Latest Code Status on File) Date Activated Date Inactivated Comments 04/16/2018 1:02 PM 04/16/2018 5:59 PM Care Teams Tar Chaser Relationship Specialty Start Date End Date Campos Noel MD [address] [place] [address] [address] [place] [address] PCP - General FAMILY PRACTICE 03/26/18 Jez Aldrich MD [facility] [address] [place] [address] [place] [facility] Doctor CARDIOVASCULAR DISEASE 04/07/18
--- OUTSIDE RECORDS SUMMARY | 2025-03-22 10:08 | XMS_ITS | Clinical Summary ---
Author Organization [facility] Address [address] [address] Phone Care Team Providers Care Typing Teacher Name Role Phone Campos Noel MD Primary Care Provider + Social History Tobacco Use Types Packs/Day Years Used Date Smoking Tobacco: Never Assessed Comments Unknown Sex and Gender Information Value Date Recorded Sex Assigned at Not on file Legal Sex Female 10:55 AM CEMETERY MANAGER Gender Identity Not on file Sexual Orientation [...] Most Recently Relevant to Health Maintenance Insurance [facility] Care Teams Typing Teacher Relationship Specialty Start Date End Date Campos Noel MD PCP - General Family Medicine 08/24/20
--- OUTSIDE RECORDS SUMMARY | 2025-03-22 10:08 | XMS_ITS | Encounter Summary ---
Author Organization [facility] Address [address] [facility] [place] [address] Care Team Providers Care Wine Consultant Name Role Phone Campos Noel MD Primary Care Provider + Encounter Details Date Type Department Care Team (Late st Contact Info) Description 04/15/2022 Lab Requisition [facility] Derm[facility] Lab [address] [place] [address] Urban Munson MD [address] [place] [address] Social History Tobacco Use Types Packs/Day Years Used Date Smoking Tobacco: Never Assessed Comments Unknown Sex and Gender Information Value Date Recorded Sex Assigned at Not on file 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 Gender Identity Not on file Sexual Orientation Not on file documented as of this encounter Plan of Treatment Not on file documented as of this encounter Procedures Procedure Name Priority Date/Time Associated Diagnosis Comments DERMATOPATHOLOGY Routine 04/15/2022 12:0 0 AM CDT documented in this encounter Results * DERMATOPATHOLOGY (04/15/2022 12:00 AM CDT) Case Report Dermatopathology Report Case: [id number] Authorizing Provider: Urban Munson MD Collected: 04/15/2022 12:00 AM Ordering Location: [facility] Derm[facility] Lab Received: 04/15/2022 03:45 [...] specimen consists of a shave biopsy measuring [id number] and another piece of tissue measuring [id number]. Jar 0. 1:02 PM CDT DERMATOPATHOLOGY LABORATORY [...] characteristic determined by the Dermatopathology Laboratory at [facility], directed by Dr. Maureen Abraham. These tests need not be, and therefore are not, approved by the [place] Food and Drug Administration. The tests are used for clinical purposes. Billing Codes Specimen Charges Stain Charges 18155 1 52192 1 2 1:02 PM CDT DERMATOPATHOLOGY LABORATORY Embedded Images 1:02 PM CDT DERMATOPATHOLOGY LABORATORY Pathology/Cytolog y TISSUE SPECIMEN FROM SKIN / Unknown 04/15/2022 04/15/2022 3:45 PM CDT us Urban Munson MD LAB - PATHOLOGY/CYTOLOGY ORDERAB LES Final Result DERMATOPATHOLOGY LABORATORY [facility] - Department of Dermatology [facility] [address] [place] [address], [address] [place] [address], [facility] [phone] documented in this encounter Visit Diagnoses Not on filedocumented in this encounter Care Teams Wine Consultant Relationship Specialty Start Date End Date Campos Noel MD [address] [address] PCP - General 09/06/21 documented as of this encounter
--- OUTSIDE RECORDS SUMMARY | 2025-03-22 10:09 | XMS_ITS | Encounter Summary ---
Author Organization [facility] Address [address] [place] [address] Care Team Providers Care Credit Card Associate Name Role Phone Campos Noel MD Primary Care Provider [phone] Jez Aldrich MD Unavailable [phone] Encounter Details Date Type Department Care Team (Late Contact Info) Description 04/16/2018 Hospital Orders Only [facility], [facility] at [address] [phone] Jez Aldrich MD [address] [phone] Social History Tobacco Use Types Packs/Day Years [...] Description 03/01/2026 9:00 AM CDT [facility] [address] [place] [address] Pamela Jeffries, MOLDING PRESS OPERATOR-C [facility]. [facility] [address] [place] [address] documented as of this encounter Visit Diagnoses Diagnosis Abnormal stress echocardiogram- Primary Other nonspecific abnormal cardiovascular system function study documented in this encounter Care Teams Credit Card Associate Relationship Specialty Start Date End Date Campos Noel MD [address] [facility] [address] [place] [address] PCP - General FAMILY PRACTICE 03/26/18 Jez Aldrich MD [facility]. [facility] [address] [place] [address] Franchesca Inseam Trimmer CARDIOVASCULAR DISEASE 04/07/18 documented as of this encounter
--- OUTSIDE RECORDS SUMMARY | 2025-03-22 10:09 | XMS_ITS | Encounter Summary ---
Author Organization [facility] Address [address] [place] [address] Care Team Providers Care Genetic Physician Name Role Phone Campos Noel MD Primary Care Provider [phone] Jez Aldrich MD Unavailable [phone] Encounter Details Date Type Department Care Team (Late st Contact Info) Description 04/17/2018 Abstract [facility] at [address] [address] [place] Social History Tobacco Use [...] Description 03/01/2026 9:00 AM CDT [facility] [address] [place] [phone] Pamela Jeffries, PLATFORM INSPECTOR-C [facility] [address] [address] documented as of this encounter Procedures Procedure Name Priority Date/Time Associated Diagnosis Comments COMPREHENSIVE METABOLIC PANEL Routine 10/08/2022 LIPID PANEL Routine 10/08/2022 MAGNESIUM Routine 10/08/2022 COMPREHENSIVE METABOLIC PANEL Routine 03/23/2018 HEMOGLOBIN Routine 03/23/2018 THYROID STIM HORMONE TSH Routine 03/23/2018 documented in this encounter Results * COMPREHENSIVE METABOLIC PANEL (10/08/2022) Pathologist [facility] SODIUM S/P/B 132 GLUCOSE 92 mg/dL AST 21 BUN 19 CREATININE S/P/B 0.80 0.5 - 1.0 CALCIUM S/P/B 9.1 POTASSIUM S/P/B 4.2 CHLORIDE S/P/B 100 ALT 17 GFR ESTIMATE >60 Narrative Resulting Agency Comment us Default History Genericprovider LABORATORY Final Result * LIPID PANEL (10/08/2022) Pathologist [facility] CHOLESTEROL 259 TRIGLYCERIDES 43 HDL 101 LDL (CALCULATED) 117 Narrative Resulting Agency Comment us Default History Genericprovider LABORATORY Final Result * MAGNESIUM (10/08/2022) Pathologist [facility] MAGNESIUM 1.7 Narrative Resulting Agency Comment us Default History Genericprovider LABORATORY Final Result * Hemoglobin (03/23/2018) Pathologist [facility] HGB 12.6 03/23/2018 us Doc [facility] LABORATORY Final Result * THYROID STIM HORMONE, TSH (03/23/2018) Pathologist [facility] TSH 0.933 03/23/2018 us Doc [facility] [...] on filedocumented in this encounter Care Teams Genetic Physician Relationship Specialty Start Date End Date Campos Noel MD [address] [facility] [address] [place] [address] PCP - General FAMILY PRACTICE 03/26/18 Jez Aldrich MD [facility] [place] [facility]. [facility] [address] [place] [address] [employer] Fitter CARDIOVASCULAR DISEASE 04/07/18 documented as of this encounter
== END 2025-03-22 09:27 | disposition home or self-care (01) ==
PROVIDERS: PCP Family Medicine Adolescent Medicine; Visit Provider Plastic Surgery
DX: S62.617D Displaced fracture of proximal phalanx of left little finger, subsequent encounter for fracture with routine healing (principal); X58.XXXD Exposure to other specified factors, subsequent encounter
CPT/HCPCS: 73140